=== PATIENT | male | born 1965 | race Caucasian/White ===

== ENCOUNTER 2023-11-05 21:56 | Inpatient (IN) | payer OTHER, SELFPAY ==
[2023-11-05 22:07] VITALS: BMI 21.9
[2023-11-05 22:39] VITALS: BP 160/50
--- NOTE | 2023-11-05 23:09 | HPS.HSE ---
Family Physician
-
Family Physician: * NONE
Chief Complaint
-
HEDRICK, orthopnea, PND
History of Present Illness
58 year old male with h/o rheumatism as a child, and left sided rib fractures who recently arrived to the from [facility] where he found out he needed a heart valve surgery. Per his son, he has noticed increasing HEDRICK over the past year or so with
orthopnea (he is laying flat in bed upon exam without SOB0, PND, and occassional b/l LE edema. Does admit to chest pain with exertion.
Medical History
Past Medical History
Past Medical History: Reports Hypercholesterolemia and Valvular Disease
Past Surgical History: Reports None
Social History
Tobacco: Smoker (1ppd x 20 years)
Alcohol: Occasional
Drug: None
Living: With Family
Family History
Family History: Not pertinent
Allergies / Home Medications
Allergies reflects when Allergies were last updated in [facility].
Home Medications with original date entered in [facility]
Allergy/Medication List:
NKDA, no home medications.
Review of Systems
-
History Source: Family (Son)
Constitutional: Reports Fatigue; Denies Fever, Weight Gain or Weight Loss
EENT: Reports No Symptoms
Respiratory: Reports See HPI and Trouble Breathing (with exertion)
Cardiac: Reports See HPI; Denies Palpitations or Syncope
Abdomen/GI: Reports No Symptoms
: Reports No Symptoms
Musculoskeletal: Reports No Symptoms
Skin: Reports Other (well healed burn on left elbow)
Neurological: Reports Headache; Denies Dizzy or Weakness
Endocrine: Reports No Symptoms
Hematologic/Lymphatic: Reports Bruising; Denies Bleeding
Psych: Reports No Symptoms
Physical Exam
Vital Signs
Vital Signs
Temp Resp BP Pulse Ox
96.7 F L 16 160/50 96
11/05/23 22:39 11/05/23 22:39 11/05/23 22:39 11/05/23 22:39
Physical Exam
General: Well Developed, Well Nourished and No Apparent Distress; No Pain or Fever
HEENT: NormoCephalic, Atraumatic, PERRLA, No Ptosis, Nose Appears Normal and Ears Appear Normal
Respiratory: Clear and Non Labored Respirations; No Rales, Rhonchi or Crackles
Cardiac: Regular Rhythm and Murmur (4/6 systolic murmur)
Breast: Deferred by me
GI: Non Tender, Non Distended and Normal Bowel Sounds
Rectal: Deferred by Provider
Genito-urinary: Deferred by me
Musculoskeletal: No Clubbing; No Edema, Left Lower Extremity or Edema, Right Lower Extremity
Skin: Warm, Dry and Lesions (burn scar on left elbow)
Neuro: Awake, AO x 3 and Nonfocal/grossly intact
Psych: Calm
Data Reviewed
-
Medical Tests (Nuc Med, Echo, EKG etc): Report Reviewed by me (TTE, RHC, and LHC) and Discussed with Family
Lab Data: Labs Reviewed by me (hypercholesterolemia and mild thrombocytopenia on outside labs)
Old Records: Reviewed
Impression/Plan
-
IMPRESSION:Severe (mean gradient of 65, PHILIPPE 0.7 square cm), Hyperlipidemia, Tobacco abuse. He does not appear to be in heart failure. LHC revealed no occlusive coronary disease.
PLAN: Will require workup in anticipation of AVR (date TBD). Will need carotid US, PFT's, dental evaluation. Will discuss patient with Dr. Herzog in AM. STS risk score to be done once workup is complete (suspect he will be a low risk SAVR candidate)
[2023-11-05] MEDS: TYLENOL 500 MG PO (23:15)
[2023-11-05 23:17] VITALS: BP 124/57
[2023-11-05 23:18] VITALS: BP 119/41
--- NOTE | 2023-11-05 23:34 | PTCARENOTE ---
Pt arrived via ambulance from [facility]. Pt able to ambulate from stretcher to bed w/ steady gait. Guamanian speaking. Language line in room. Son at bedside to assist w/ admission questions. Oriented pt to unit. Jason HEALY at bedside. Tele- SR.
Assessment noted as documented. VSS. C/o headache 11/05. Tylenol administered. B/l BPs documented. Currently in bed; call corbin w/in reach.
[2023-11-06] VITALS (8 sets, daily range): BP systolic 92–109; BP diastolic 40–56; BMI 21.9
[2023-11-06 04:49] LABS: O2 Saturation % 98.6 % (94-98); PCO2 42 mmHg (35-48); PO2 89 mmHg (83-108)
[2023-11-06] MEDS: BACTROBAN 2% OINTMENT 1 APPLIC NASAL (04:57)
[2023-11-06 05:03] LABS: O2 Therapy ROOM AIR
[2023-11-06 05:26] LABS: Hematocrit 39.6 % (39.0-52.0); Hemoglobin 13.2 g/dL (13.0-18.0); Mean Corp Hgb Conc. 33.3 g/dL (33.0-37.0); Mean Corpuscular Hgb 27.4 pg (27.0-31.0); Mean Corpuscular Volume 82.2 fL (80.0-94.0); Mean Platelet Volume 10.8 fL (7.4-10.4); Platelet Count 142 10^3/uL (130-400); Red Blood Cell Count 4.82 10^6/uL (4.70-6.10); White Blood Cell Count 6.1 10^3/uL (4.8-10.8)
[2023-11-06 05:38] LABS: INR 0.98
[2023-11-06 05:39] LABS: APTT 34.6 Sec (23.4-35.0)
[2023-11-06 05:50] LABS: ALT (SGPT) 22 U/L (0-50); AST (SGOT) 23 U/L (17-59); Alkaline Phosphatase 57 U/L (38-126); Blood Urea Nitrogen 15 mg/dl (9-20); Calcium 9.3 mg/dl (8.4-10.2); Carbon Dioxide 24 mmol/L (22-30); Chloride 104 mmol/L (98-107); Direct Bilirubin 0.3 mg/dl (0.0-0.4); Estimated Creatinine Clearance 79 ml/min; Glucose 95 mg/dl (70-99); Potassium 3.8 mmol/L (3.5-5.1); Sodium 136 mmol/L (135-145); Total Bilirubin 0.6 mg/dl (0.2-1.3); Total Protein 6.7 g/dl (6.3-8.2); eGFR > 60.00
--- NOTE | 2023-11-06 09:31 | W.PN.UPDATE ---
Update Note
Progress Note Update
echo and cath films from [facility] loaded into CV synapse. preop workup underway.
[2023-11-06 09:40] LABS: Glycohemoglobin (HgbA1c) 5.5 % (4.0-5.6)
[2023-11-06 11:12] LABS: Total Cholesterol 189 mg/dl (50-199); Triglyceride 196 mg/dl (10-149); Very Low Density Lipoprotein 39 mg/dl (0-30)
--- NOTE | 2023-11-06 11:21 | CON.CAR ---
Addendum entered and electronically signed by Nain Albarado MD 11/06/23 12:46:
I saw and examined the patient.
The MECHANICAL EQUIPMENT SALES ENGINEER's note was reviewed and I agree with the note.
Comment: 58M with severe symptomatic transferred for surgical AVR
- SAVR planning
- treating LDL 170
- He should stop smoking
Original Note:
Consultation
Consultation Request
Date/Time Consultation Requested: 11/06/23 0910
Date/Time Consultation Performed: 11/06/23 1100
Requesting Provider: Dennise Portillo
Performing Provider: Susanne MERCHANT for Dr. Albarado
Reason for Consultation: Aortic stenosis, severe
Medical History
-
Chief Complaint: HEDRICK, chest discomfort
History of Present Illness:
58 y/o male with dyslipidemia, smoking, and aortic stenosis who has been having HEDRICK and chest discomfort with exertion (2 years, but recently worsened). He went to [facility] and severe was noted by cath and echo (as below). No CAD.
Denies any SOB or chest pain at rest, but is reporting cough and PATIÑO for which he is ordered Tylenol and Mucinex. He is transferred for surgical management of his aortic valve stenosis. His son assists in translation.
Past Medical History
Past Medical History: Hypercholesterolemia and Valvular Disease
Social History
Tobacco: Smoker
Alcohol: Former (does not drink ETOH anymore per son)
Family History
Family History: Reviewed & Not Pertinent
Allergies / Home Medications
Allergy/AdvReac Type Severity Reaction Status Date / Time
No Known Allergies Allergy Verified 11/05/23 22:57
�Medication �Instructions �Recorded �Confirmed �Type
No Meds [No Current Medications] 11/05/23 11/05/23 History
Review of Systems
-
History Source: Patient
All other systems: Negative unless noted
Respiratory: Cough and Trouble Breathing
Cardiac: Chest Pain
Neurological: Headache
Physical Exam
Vital Signs
Temp Pulse Resp BP Pulse Ox
98.1 F 69 18 103/40 95
11/06/23 07:00 11/06/23 05:00 11/06/23 07:00 11/06/23 04:47 11/06/23 07:00
Lab Results
11/06/23 04:55
11/06/23 04:55
Physical Exam
General: Well Developed, Well Nourished and No Apparent Distress
HEENT: Normocephalic and Anicteric
Respiratory: Clear and Non Labored Respirations
Cardiac: Regular Rhythm and Murmur (IV/ systolic murmur)
Musculoskeletal: No Edema
Skin: Warm and Dry
Neuro: AO x 3
Psych: Calm
Impression / Plan
-
Aortic stenosis: Severe
-severe by cath and echo (see details below)
-surgical management per CT surgery. Pre-procedure testing is pending.
HLD:
-LDL 170 at [facility]
-now on statin
Smoking:
-recommended total cessation
Data Reviewed
-
EKG: Tracing Personally Visualized and interpreted (EKG 10/31/23: SR with LVH, non-specific ST/T abnormality 90 BPM)
Medical Tests (Nuc Med, Echo etc): Report Reviewed by me (echo 10/31/24: Severely calcified aortic valve leaflets, MG 65 mmHG, PHILIPPE 0.7 cm2 (severe ), mild to moderate AR, mild MR, mild LVH, EF 55-60%, global long strain mildly abnormal -15%, grade 1
DD) and Other (cardiac cath 11/04/23: very severe with mean gradient 65 mmHG PHILIPPE 0.52 cm2, no evidence for CAD, normal L and R cath pressures)
Labs: Labs Reviewed by me and Other (LDL 11/01/23: 170)
[2023-11-06 11:26] LABS: HDL Cholesterol 36 mg/dl; LDL Cholesterol, Calculated 114 mg/dl
--- NOTE | 2023-11-06 12:00 | CM ---
CM following for DC planning needs.
Met w/ patient and son at bedside. Son provided translation.
Pt. recently moved [place]2 [place] ago to be w/ son. He resides w/ son, dtr. in law and his grandchildren (all under age 6).
Functionally, patient is indep. w/ ADLs, mobility without the use of any assisted device.
Pt. has RX plan and uses [facility] on [address] in [place].
Awaiting CT Surg plan. Will meet with patient, son once plan is in place for pre-op teaching.
CM to follow.
[2023-11-06] MEDS: MUCINEX 600 MG PO (13:04)
[2023-11-06] MEDS: TYLENOL 500 MG PO (13:04)
--- NOTE | 2023-11-06 13:12 | PTCARENOTE ---
Pt was off the floor having U/S and CT scan at the time of 1200 vital signs. Vital signs obtained upon return to unit.
[2023-11-06] MEDS: LIPITOR 40 MG PO (17:53)
--- NOTE | 2023-11-06 21:44 | PTCARENOTE ---
AOX3. Assessment noted as documented. VSS. tele- SR. Offers no c/o at this time. Currently in bed; call corbin w/in reach.
[2023-11-07 03:43] VITALS: BP 90/52
--- NOTE | 2023-11-07 07:18 | W.PN.CT ---
Today's Communication / Plan
-
-c/o cough x3 days with scant sputum - unable to produce specimen yet, will start Mucinex. Remains afebrile, nl wbc. CXR without acute dz. ? swab for covid/influenza
-Chest/abd/pelvis CTA 11/06/23:
Mild cardiomegaly with aortic valvular calcification
Dependent atelectasis and minimal interstitial scarring at the lung bases
-quit smoking 2-3 wks ago
-no significant carotid dz b/l
-panelipse ok
-OR date for AVR is pending
Assessment / Plan
-
-Severe (mean gradient of 65, PHILIPPE 0.7 square cm)
-Cough x3 days with scant mucus
-Tobacco abuse, quit 2 wks ago
-HLD
-LHC revealed no occlusive coronary disease.
Discussed patient care with: Nursing and Care Team
Subjective
-
Date of Service: November 07, 2023
Objective Data
-
Lab Results
11/06/23 04:55
11/06/23 04:55
PT 13.0 Sec (11.4-14.6) 11/06/23 04:55
INR 0.98 11/06/23 04:55
APTT 34.6 Sec (23.4-35.0) 11/06/23 04:55
Vital Signs
Vital Signs
Temp Pulse Resp BP Pulse Ox
98.2 F 83 16 90/52 96
11/07/23 03:43 11/07/23 03:43 11/07/23 03:43 11/07/23 03:43 11/07/23 03:43
CT Intake/Output/Weight
11/06/23 11/07/23 11/07/23
18:59 06:59 18:59
Intake Total 240 / 240
Balance 240 / 240
SaO2: 96
Physical Exam
-
General: Awake and AOx3
Cardiovascular: Regular rate & rhythm and Murmur (3/6 systolic murmur @ rsb radiating to carotids)
Respiratory: Clear and Decreased Breath Sounds
Extremities: No Edema
Data Reviewed
-
Lab Results: Results Reviewed
Medications: Active Meds Reviewed
Chest X-Ray: Report Reviewed and Image Reviewed
CT Scan: Report Reviewed
ECG: Report Reviewed and Image Reviewed
[2023-11-07 08:08] VITALS: BP 96/57
[2023-11-07] MEDS: MUCINEX 600 MG PO ×2 (08:55→19:35)
--- NOTE | 2023-11-07 09:20 | W.PN.CD ---
Today's Communication / Plan
-
SAVR timing TBD
Impression / Plan
-
Impression: 58M with severe symptomatic transferred for inpatient SAVR
Plan:
Aortic stenosis: Severe
-severe by cath and echo
-surgical management per CT surgery. Pre-procedure testing is ongoing
HLD:
-LDL 170 at [facility]
-now on statin
Smoking: recommended continuing cessation
Subjective:Cough
Data
TTE Oct 5: EF 55-60%, Severely calcified aortic valve leaflets, MG 65 mmHG, PHILIPPE 0.7 cm2 (severe ), mild to moderate AR, mild MR, mild LVH,,
cardiac cath Oct 8: Severe with mean gradient 65 mmHG PHILIPPE 0.52 cm2, no evidence for CAD, normal L and R cath pressures
Physical Exam
Vital Signs/Labs
Vital Signs
Temp Pulse Resp BP Pulse Ox
36.9 C 99 20 96/57 95
11/07/23 08:06 11/07/23 09:00 11/07/23 08:06 11/07/23 08:08 11/07/23 08:08
11/06/23 11/07/23 11/08/23
06:59 06:59 06:59
Actual Weight 139 lb 12.369 oz
11/06/23 04:55
11/06/23 04:55
PT 13.0 Sec (11.4-14.6) 11/06/23 04:55
INR 0.98 11/06/23 04:55
APTT 34.6 Sec (23.4-35.0) 11/06/23 04:55
Triglycerides 196 mg/dl (10-149) H 11/06/23 10:23
LDL Cholesterol, Calc 114 mg/dl 11/06/23 10:23
VLDL Cholesterol, Calc 39 mg/dl (0-30) H 11/06/23 10:23
HDL Cholesterol 36 mg/dl 11/06/23 10:23
Data Reviewed
-
Date of Service: November 07, 2023
[2023-11-07] MEDS: TYLENOL 500 MG PO (09:29)
[2023-11-07 09:54] LABS: COVID-19 Antigen Negative (Negative)
[2023-11-07] MEDS: DUONEB 3 ML INH (10:47)
--- NOTE | 2023-11-07 10:51 | W.PN.UPDATE ---
Update Note
Progress Note Update
Procedure Type:�Isolated AVR
PERIOPERATIVE OUTCOME ESTIMATE %
Operative Mortality 0.692%
Morbidity & Mortality 5.04%
Stroke 0.59%
Renal Failure 0.376%
Reoperation 3.83%
Prolonged Ventilation 1.59%
Deep Sternal Wound Infection 0.037%
Long Hospital Stay (>14 days) 1.89%
Short Hospital Stay (<6 days)* 67.9%
Clinical Summary
Planned Surgery: Isolated AVR, Urgent, First cardiovascular surgery
Demographics: 58 year old, male, 63.4kg, 170cm, BMI: 21.9 kg/m�
Lab Values: Creatinine: 0.6 mg/dL, Hematocrit: 39.6%, WBC Count: 6.1 10�/�L, Platelet Count: 060787 cells/�L
Substance Abuse: Current smoker, Alcohol use: 2-7 drinks/week
Cardiac Status: Ejection Fraction = 55%
Coronary Artery Disease: No coronary symptoms
Valve Disease: Aortic Stenosis, Mild MR
Assuming no significant pulm disease on PFT (still pending).
[2023-11-07 11:18] VITALS: BP 122/81
--- NOTE | 2023-11-07 12:07 | PTCARENOTE ---
Pt c/o cough and sore throat, med with Mucinex as ordered and Tylenol. He has a productive cough for thin whitish-clear sputum. Sputum specimen sent for culture as ordered. Pt does have some SOB, neb treatment given by RT, Pt reports feeling better
after neb treatment. Covid test ordered and sent, result was negative.
[2023-11-07 15:03] VITALS: BP 102/54
--- NOTE | 2023-11-07 18:17 | W.PN.OMFS ---
Today's Communication
-
NKDA
Assessment / Plan
-
DENTAL CLEARED FOR AORTIC VALVULAR SURGERY
RAQUEL NUNES, YESENIA
Subjective Data
-
OMFS DENTAL CLEARANCE
Objective Data
-
Vitals, I&O and Lab Results:
Vital Signs
Temp Pulse Resp BP Pulse Ox
98.6 F 81 20 122/81 96
11/07/23 15:01 11/07/23 14:15 11/07/23 15:01 11/07/23 11:18 11/07/23 15:01
Intake and Output
11/06/23 11/07/23 11/08/23
06:59 06:59 06:59
Intake Total 480 / 480 240 / 240
Balance 480 / 480 240 / 240
Intake:
Oral fluids 480 / 480 240 / 240
Other:
Number of approximated MODERATE 2 2
amounts of urine
Lab Data
11/06/23 04:55
11/06/23 04:55
Plt Count 142 10^3/uL (130-400) 11/06/23 04:55
Microbiology
11/07/23 09:19 Respiratory Culture - Pending
Sputum Gram Stain - Preliminary
Physical Exam
-
DENTALLY INTACT AND RESTORED
NO ACUTE DISEASE
[2023-11-07] MEDS: LIPITOR 40 MG PO (18:19)
[2023-11-07 19:05] VITALS: BP 109/65
--- NOTE | 2023-11-07 19:49 | PTCARENOTE ---
AOx3. Assessment completed as documented. VSS. Pt c/o occ. cough. Mucinex administered as ordered. Tele- Sr. Ambulating around room w/ steady gait. Currently OOB in chair; call alaniz w/in reach.
[2023-11-07 22:14] VITALS: BP 144/60
--- NOTE | 2023-11-08 04:11 | W.PN.CT ---
Today's Communication / Plan
-
-no significant issues overnight
-s/p PFT 11/06
-appreciate everyone's input
-tentative plan for AVR next week on Sat or Sat
Assessment / Plan
-
-Severe (mean gradient of 65, PHILIPPE 0.7 square cm)
-Cough x3 days with scant mucus, Covid negative
-Tobacco abuse, quit 2 wks ago
-HLD
-TTE Oct 5: EF 55-60%, Severely calcified aortic valve leaflets, MG 65 mmHG, PHILIPPE 0.7 cm2 (severe ), mild to moderate AR, mild MR, mild LVH,,
-Cardiac cath Oct 8: Severe with mean gradient 65 mmHG PHILIPPE 0.52 cm2, no evidence for CAD, normal L and R cath pressures
Discussed patient care with: Nursing and Care Team
Subjective
-
Date of Service: November 08, 2023
Objective Data
-
Lab Results
11/06/23 04:55
11/06/23 04:55
PT 13.0 Sec (11.4-14.6) 11/06/23 04:55
INR 0.98 11/06/23 04:55
APTT 34.6 Sec (23.4-35.0) 11/06/23 04:55
Vital Signs
Vital Signs
Temp Pulse Resp BP Pulse Ox
98.2 F 100 16 109/65 96
11/07/23 22:21 11/07/23 19:15 11/07/23 22:21 11/07/23 19:05 11/07/23 22:21
CT Intake/Output/Weight
11/07/23 11/07/23 11/08/23
06:59 18:59 06:59
Intake Total 240 / 240
Balance 240 / 240
SaO2: 96
[2023-11-08 05:23] VITALS: BP 101/51
[2023-11-08 05:25] VITALS: BMI 21.8
--- NOTE | 2023-11-08 08:18 | W.PN.CD ---
Today's Communication / Plan
-
Continue surgical planning.
Impression / Plan
-
Impression/Plan: 58M with severe symptomatic transferred for inpatient SAVR.
#Severe Aortic stenosis
-Severe by cath and echo
-Surgical management per CT surgery.
-Tentative plan for OR on 11/10 vs. 11/11.
#HLD
-Chronic, stable.
-LDL 170 at [facility]
-Now on atorvastatin 40 mg daily.
-Goal LDL < 55.
#Cough
-New.
-Management per primary service.
-Agree with current management.
#Smoking
-Recommended continuing cessation.
Subjective/Interval History:
Stable overnight.
Dentistry/OMFS has evaluated - no contraindication to surgery.
He is complaining of a cough. Primary service has discontinued guiafenissen in favor of robitussin and tessalon pearls.
Data:
Carotid Artery US, 11/06/2023:
IMPRESSION:
Minimal noncalcified plaque within BOTH carotid bulbs causing less than 50% luminal narrowing bilaterally.
Antegrade flow within both vertebral arteries.
Orthopantogram, 11/06/2023:
FINDINGS/IMPRESSION:
Limited exam due to the technical motion.
No definite lucency around the roots of the teeth to suggest an abscess. No fracture.
CTA C/A/P, 11/06/2023:
IMPRESSION:
Mild cardiomegaly with aortic valvular calcification.
Dependent atelectasis and minimal interstitial scarring at the lung bases.
TTE Apr 5: EF 55-60%, Severely calcified aortic valve leaflets, MG 65 mmHG, PHILIPPE 0.7 cm2 (severe ), mild to moderate AR, mild MR, mild LVH,,
cardiac cath Apr 8: Severe with mean gradient 65 mmHG PHILIPPE 0.52 cm2, no evidence for CAD, normal L and R cath pressures
Physical Exam
Vital Signs/Labs
Vital Signs
Temp Pulse Resp BP Pulse Ox
36.7 C 72 16 101/51 96
11/08/23 05:23 11/08/23 05:23 11/08/23 05:23 11/08/23 05:23 11/08/23 05:23
11/06/23 11/07/23 11/08/23
11:59 11:59 11:59
Actual Weight 63.4 kg 63.2 kg
11/06/23 04:55
11/06/23 04:55
PT 13.0 Sec (11.4-14.6) 11/06/23 04:55
INR 0.98 11/06/23 04:55
APTT 34.6 Sec (23.4-35.0) 11/06/23 04:55
Triglycerides 196 mg/dl (10-149) H 11/06/23 10:23
LDL Cholesterol, Calc 114 mg/dl 11/06/23 10:23
VLDL Cholesterol, Calc 39 mg/dl (0-30) H 11/06/23 10:23
HDL Cholesterol 36 mg/dl 11/06/23 10:23
Physical Exam
Constitutional: No acute distress and Comfortable
EENT: Anicteric and Moist mucous membranes
Cardiovascular: Rhythm & rate is regular, Pedal edema is absent, JVD pressure is normal, Systolic murmur present and S1S2 is normal
Respiratory: Respiratory effort normal, Lungs clear to auscul., Wheeze Absent, Crackles Absent and Rhonchi Absent
GI: Soft, Distention absent, Flat, Non tender and Normal bowel sounds
Neuro/Psych: AO x 3
Data Reviewed
-
Date of Service: November 08, 2023
Medical Decision Making: Reviewed Test Results and Independent Historian Assessment
EKG: Tracing Personally Visualized and interpreted and Report Reviewed by me
Echo: Report Reviewed by me
X-Ray/CT/US/MRI/NUC/PET: Report Reviewed by me
Medical Tests (PFT, Pathology etc): Report Reviewed by me
Labs: Labs Reviewed by me
[2023-11-08 08:23] VITALS: BP 111/53
[2023-11-08] MEDS: PROTONIX 40 MG PO (08:46)
[2023-11-08] MEDS: ROBITUSSIN 200 MG PO ×4 (08:46→22:26)
[2023-11-08] MEDS: TESSALON PERLES 100 MG PO ×2 (08:47→22:26)
[2023-11-08 11:25] VITALS: BP 104/57
--- NOTE | 2023-11-08 12:01 | CM ---
Addendum entered by BRITTANY Hector 11/08/23 15:04:
With assistance of Search And Rescue Officer, Fei, completed pre-op teaching with patient and son.
Reviewed pre and post op routines.
Discussed post op restrictions to include flying, lifting, driving and sternal precautions.
Reviewed MD appointments, Cardiac Rehab and visit from CT Transitional Care RN v. VN (will depend based on geographical area).
Answered all questions.
Plan is for CT Surgery next week.
Will follow.
Original Note:
CM following for DC planning needs.
Met w/ patient this AM. Plan for CT Surgery next wk.
Pt. states that his son will arrive this PM. Will return to complete pre-operative teaching.
[2023-11-08] MEDS: TYLENOL 500 MG PO (14:44)
[2023-11-08 15:50] VITALS: BP 106/52
[2023-11-08] MEDS: LIPITOR 40 MG PO (18:40)
[2023-11-08 18:50] VITALS: BP 103/53
--- NOTE | 2023-11-08 21:41 | PTCARENOTE ---
AOx3. Assessment noted as documented. VSS. Tele- SR. Pt ambulating around room w/ steady gait. Offers no c/o at this time.
[2023-11-08 22:25] VITALS: BP 113/58
[2023-11-08] MEDS: MELATONIN 5 MG PO (22:26)
[2023-11-09 04:05] VITALS: BP 102/56
--- NOTE | 2023-11-09 06:59 | W.PN.CT ---
Today's Communication / Plan
-
-No major issues overnight. Denies SOB/CP
-Cont. current medical management
-Cont. current meds (avoid JU-I/ARBs in preparation for OR)
-Ongoing preop workup
-For mini AVR (bio vs mechanical) by Dr. Herzog on Friday 11/10
-Will cont. to closely monitor
Assessment / Plan
-
Assessment:
-Severe (mean gradient of 65, PHILIPPE 0.7 square cm)
-Cough x3 days with scant mucus, Covid negative
-Tobacco abuse, quit 2 wks ago
-HLD
-TTE Oct 5: EF 55-60%, Severely calcified aortic valve leaflets, MG 65 mmHG, PHILIPPE 0.7 cm2 (severe ), mild to moderate AR, mild MR, mild LVH,,
-Cardiac cath Oct 8: Severe with mean gradient 65 mmHG PHILIPPE 0.52 cm2, no evidence for CAD, normal L and R cath pressures
Discussed patient care with: Cardiology, Nursing and Care Team
Subjective
-
Date of Service: November 09, 2023
No issues overnight. Denies CP/SOB
Objective Data
-
Lab Results
11/06/23 04:55
11/06/23 04:55
PT 13.0 Sec (11.4-14.6) 11/06/23 04:55
INR 0.98 11/06/23 04:55
APTT 34.6 Sec (23.4-35.0) 11/06/23 04:55
Vital Signs
Vital Signs
Temp Pulse Resp BP Pulse Ox
97.8 F 61 18 102/56 96
11/09/23 03:10 11/09/23 05:15 11/09/23 03:10 11/09/23 04:05 11/09/23 03:10
CT Intake/Output/Weight
11/08/23 11/08/23 11/09/23
06:59 18:59 06:59
Intake Total 240 / 240 480 / 480
Balance 240 / 240 480 / 480
SaO2: 96 (RA)
Physical Exam
-
General: Awake and AOx3
Cardiovascular: Regular rate & rhythm and No Murmurs
Respiratory: Clear
Extremities: No Edema
Data Reviewed
-
Lab Results: Results Reviewed
Medications: Active Meds Reviewed
Chest X-Ray: Report Reviewed and Image Reviewed
ECG: Report Reviewed and Image Reviewed
[2023-11-09 07:03] VITALS: BP 100/53
[2023-11-09] MEDS: PROTONIX 40 MG PO (08:20)
[2023-11-09] MEDS: ROBITUSSIN 200 MG PO ×4 (08:20→22:32)
[2023-11-09 11:40] VITALS: BP 100/56
[2023-11-09 16:03] VITALS: BP 93/54
[2023-11-09] MEDS: LIPITOR 40 MG PO (17:45)
[2023-11-09 20:07] VITALS: BP 96/54
[2023-11-09 22:28] VITALS: BP 104/59
[2023-11-09] MEDS: KCL 20 MEQ PO (22:32)
[2023-11-09] MEDS: MELATONIN 5 MG PO (22:32)
--- NOTE | 2023-11-09 23:17 | W.PN.CT ---
Today's Communication / Plan
-
-No major issues overnight. Denies SOB/CP
-Cont. current management
-Cont. current meds (avoid JU-I/ARBs in preparation for OR)
-Ongoing preop workup
-For mini AVR (biological valve) by Dr. Herzog tomorrow 11/10
-Will cont. to closely monitor
Assessment / Plan
-
Assessment:
-Severe
-Cough x3 days with scant mucus, COVID negative
-Tobacco abuse, quit 2 wks ago
-Hyperlipidemia
Discussed patient care with: Cardiology, Nursing, Pharmacy and Care Team
Subjective
-
Date of Service: November 09, 2023
No issues overnight. Denies CP/SOB. States cough has improved
Objective Data
-
Lab Results
11/06/23 04:55
11/06/23 04:55
PT 13.0 Sec (11.4-14.6) 11/06/23 04:55
INR 0.98 11/06/23 04:55
APTT 34.6 Sec (23.4-35.0) 11/06/23 04:55
Vital Signs
Vital Signs
Temp Pulse Resp BP Pulse Ox
98.5 F 87 20 104/59 96
11/09/23 22:28 11/09/23 22:28 11/09/23 22:28 11/09/23 22:28 11/09/23 22:28
CT Intake/Output/Weight
11/09/23 11/09/23 11/10/23
06:59 18:59 06:59
Intake Total 480 / 480
Balance 480 / 480
SaO2: 96
Physical Exam
-
General: Awake, Oriented and AOx3
Cardiovascular: Regular rate & rhythm, Murmur (3-4/6 systolic) and No Gallop
Respiratory: Decreased Breath Sounds
Incision: Clean, Dry, Intact and Dressing Intact
Extremities: No Edema
Data Reviewed
-
Lab Results: Results Reviewed
Medications: Active Meds Reviewed
Chest X-Ray: Report Reviewed and Image Reviewed
ECG: Report Reviewed and Image Reviewed
--- NOTE | 2023-11-10 01:19 | PTCARENOTE ---
No complaints CP/discomfort, VSS, NSR on the monitor. Pt. sleeping.
[2023-11-10 03:52] VITALS: BP 97/48
[2023-11-10 08:00] VITALS: BP 98/46
[2023-11-10] MEDS: ROBITUSSIN 200 MG PO ×4 (08:01→21:55)
[2023-11-10] MEDS: VITAMIN C 500 MG PO (08:01)
[2023-11-10] MEDS: PROTONIX 40 MG PO (08:01)
[2023-11-10 11:44] VITALS: BP 101/61
[2023-11-10] MEDS: FERRLECIT 110 MG IV (13:53)
--- NOTE | 2023-11-10 17:02 | PTCARENOTE ---
Pt ambulating in room, offers no complaints today, he said that he no longer has a sore throat and that his cough is lessening.
[2023-11-10] MEDS: LIPITOR 40 MG PO (18:12)
[2023-11-10 19:16] VITALS: BP 120/57
[2023-11-10 21:54] VITALS: BP 116/57
[2023-11-10] MEDS: MELATONIN 5 MG PO (21:55)
[2023-11-11] VITALS (15 sets, daily range): BP systolic 86–115; BP diastolic 44–78; BMI 21.6
[2023-11-11 05:41] LABS: Hematocrit 37.2 % (39.0-52.0); Hemoglobin 12.8 g/dL (13.0-18.0); Mean Corp Hgb Conc. 34.4 g/dL (33.0-37.0); Mean Corpuscular Hgb 27.6 pg (27.0-31.0); Mean Corpuscular Volume 80.2 fL (80.0-94.0); Mean Platelet Volume 10.4 fL (7.4-10.4); Platelet Count 162 10^3/uL (130-400); Red Blood Cell Count 4.64 10^6/uL (4.70-6.10); Red Cell Dist. Width 12.1 % (11.5-14.5); White Blood Cell Count 7.2 10^3/uL (4.8-10.8)
--- NOTE | 2023-11-11 05:50 | PTCARENOTE ---
No complaints pain/discomfort or SOB this shift, NSR on the monitor, VSS. Pt. clipped and showered x 2 with chlorhexidine soap this shift in preparation for CVOR today (beds also switched out, AM labs completed, B/L arm BP's done). Per Ed
Iris, pre-op meds to be given by dayshift RN when surgery is more imminent (later morning). Pt. verbalizes understanding of plan of care.
[2023-11-11 06:19] LABS: Blood Urea Nitrogen 17 mg/dl (9-20); Calcium 9.5 mg/dl (8.4-10.2); Carbon Dioxide 24 mmol/L (22-30); Chloride 105 mmol/L (98-107); Estimated Creatinine Clearance 70 ml/min; Glucose 99 mg/dl (70-99); Magnesium 2.2 mg/dl (1.6-2.3); Potassium 4.4 mmol/L (3.5-5.1); Sodium 138 mmol/L (135-145); eGFR > 60.00
--- NOTE | 2023-11-11 06:32 | W.CVOR.SURPR ---
CVOR Surgeon Immed Pre Op
-
I have examined this patient prior to performance of the scheduled procedure.
The patient's condition is unchanged from the time of the dictated/written History and
Physical and the patient is able to undergo the scheduled procedure.
AVR (Shared decision making with Mr. Chappell is for a Biological Valve)
[2023-11-11] MEDS: VITAMIN C PO (08:40)
[2023-11-11] MEDS: PROTONIX 40 MG PO (08:40)
[2023-11-11] MEDS: ROBITUSSIN PO ×2 (08:40→17:23)
[2023-11-11] MEDS: PROTONIX PO (08:40)
[2023-11-11] MEDS: BACTROBAN 2% OINTMENT 1 APPLIC NASAL ×2 (08:40→20:11)
[2023-11-11] MEDS: MAGNESIUM OXIDE 500 MG PO (08:40)
--- NOTE | 2023-11-11 09:00 | PTCARENOTE ---
pt received from restaurant shift leader RN. resting comfortable in bed. son at bedside. AAOX3, denies pain. per CTPA, to hold pre op metoprolol. BP 98/51, normal sinus rhythm heart rate in 70s. pulses palpable. pt on room air, sat 94%. lung sounds clear
diminished in bases. see worklist for full nursing assessment and interventions. pt awaiting CVOR.
--- NOTE | 2023-11-11 12:20 | CM ---
pt in OR today, cm to follow.
[2023-11-11 13:24] LABS: B.E. - POC -0.9 mmol/L; Glucose - POC 94 mg/dl (65-99); HCO3 - POC 24 mmol/L (21-29); Hematocrit - POC 39 % PCV (42-52); Hemodilution- POC No; Hemoglobin Calculated - POC 13.3; Ionized Calcium - POC 1.21 mmol/L (1.12-1.27); O2 Saturation %Calculated-POC 99.5 5 (92-96); PCO2 - POC 40 mmHg (35-45); PO2 - POC 174 mmHg (80-100); Potassium - POC 3.9 mmol/L (3.6-5.0); Sodium - POC 142 mmol/L (135-145); pH - POC 7.39 (7.35-7.45)
[2023-11-11 13:32] LABS: Urine Albumin Negative (Neg - Trace); Urine Bilirubin Negative (Negative); Urine Character Clear (Clear); Urine Color Yellow; Urine Glucose Negative (Negative); Urine Ketone Negative (Negative); Urine Leukocyte Negative (Negative); Urine Nitrite Negative (Negative); Urine Occult Blood 1+ (Negative); Urine Urobilinogen Negative (Neg - 1+); Urine pH 6.5 (5.0-9.0)
[2023-11-11 13:56] LABS: ACT+ - POC 490 Seconds (82-134)
[2023-11-11 14:16] LABS: Urine Mucus Few
[2023-11-11 14:18] LABS: Urine Bacteria Few (Negative); Urine White Cell 0-2 /HPF (0-5)
[2023-11-11 14:38] LABS: B.E. - POC 0.7 mmol/L; Glucose - POC 119 mg/dl (65-99); HCO3 - POC 24 mmol/L (21-29); Hematocrit - POC 33 % PCV (42-52); Hemodilution- POC Yes; Hemoglobin Calculated - POC 11.1; Ionized Calcium - POC 0.93 mmol/L (1.12-1.27); O2 Saturation %Calculated-POC 99.9 5 (92-96); PCO2 - POC 34 mmHg (35-45); PO2 - POC 323 mmHg (80-100); Potassium - POC 5.8 mmol/L (3.6-5.0); Sodium - POC 137 mmol/L (135-145); pH - POC 7.46 (7.35-7.45)
[2023-11-11 14:40] LABS: ACT+ - POC 592 Seconds (82-134)
[2023-11-11 15:16] LABS: ACT+ - POC 618 Seconds (82-134)
[2023-11-11 15:17] LABS: B.E. - POC -0.9 mmol/L; Glucose - POC 176 mg/dl (65-99); HCO3 - POC 25 mmol/L (21-29); Hematocrit - POC 33 % PCV (42-52); Hemodilution- POC Yes; Hemoglobin Calculated - POC 11.3; Ionized Calcium - POC 1.03 mmol/L (1.12-1.27); O2 Saturation %Calculated-POC 99.7 5 (92-96); PCO2 - POC 43 mmHg (35-45); PO2 - POC 217 mmHg (80-100); Sodium - POC 137 mmol/L (135-145); pH - POC 7.36 (7.35-7.45)
[2023-11-11] MEDS: ANCEF 10 IV ×2 (15:25)
[2023-11-11 15:35] LABS: ACT+ - POC 87 Seconds (82-134)
[2023-11-11 15:54] LABS: B.E. - POC -1.1 mmol/L; Glucose - POC 173 mg/dl (65-99); HCO3 - POC 24 mmol/L (21-29); Hematocrit - POC 35 % PCV (42-52); Hemodilution- POC Yes; Hemoglobin Calculated - POC 11.8; Ionized Calcium - POC 1.29 mmol/L (1.12-1.27); O2 Saturation %Calculated-POC 99.8 5 (92-96); PCO2 - POC 42 mmHg (35-45); PO2 - POC 238 mmHg (80-100); Potassium - POC 5.3 mmol/L (3.6-5.0); Sodium - POC 138 mmol/L (135-145); pH - POC 7.37 (7.35-7.45)
--- NOTE | 2023-11-11 16:06 | CON.INTV ---
Consultation
Consultation Request
Date/Time Consultation Requested: 11-11-23
Date/Time Consultation Performed: 11-11-23
Requesting Provider: Dr Herzog
Performing Provider: Dr Riley
Reason for Consultation: AVR
Medical History
-
Chief Complaint: s/p AVR MV
History of Present Illness:
Mr Javier Chappell is a 58/M transferred from [facility] on 11-04 for evaluation of severe .
He presented to [facility] with acute on chronic HEDRICK and chest discomfort, LHC and TTE showed severe . Seen by Dr Herzog, prepared for AVR
Seen at [facility], received bioprosthetic AV with no issue. Weaning from MV on CPAP at time of visit
Past Medical History
Past Medical History: Hypercholesterolemia
Social History
Tobacco: Smoker
Alcohol: None
Drug: None
Living: With Family
Family History
Family History: Reviewed & Not Pertinent
Allergies / Home Medications
Allergies
Allergy/AdvReac Type Severity Reaction Status Date / Time
No Known Allergies Allergy Verified 11/05/23 22:57
Home Medications
�Medication �Instructions �Recorded �Confirmed �Last Taken �Type
No Meds [No Current Medications] 11/05/23 11/05/23 Unknown History
Review of Systems
-
Unable to Obtain full review of systems at this time due to: Patient Intubation
Vitals / Labs / Diagnostic Testing
Vital Signs
Temp Pulse Resp BP Pulse Ox
98.1 F 80 16 101/60 97
11/11/23 12:00 11/11/23 12:00 11/11/23 12:00 11/11/23 11:59 11/11/23 12:00
Microbiology
11/08/23 17:50 Nose MRSA Screen - Final
No Methicillin Resistant Staphylococcus aureus isolated.
11/07/23 09:19 Sputum Respiratory Culture - Final
Usual Respiratory Ashley
11/07/23 09:19 Sputum Gram Stain - Final
Diagnostic Testing:
Physical Exam
-
HEENT: Normocephalic and Moist Mucous Membranes
Cardiovascular: Peripheral Edema (n)
Respiratory: Clear and Non-Labored Respirations
GI: Soft and Non Distended
Neurology: Other (sedated)
Skin: Warm
General: Respiratory Distress (n)
Assessment
-
Assessment:
Mr Javier Chappell is a 58/M transferred from [facility] for evaluation of severe . He presented to [facility] with acute on chronic HEDRICK and chest discomfort, LHC and TTE showed severe . Seen by Dr Herzog, prepared for AVR
Impression:
S/p bioprosthetic AVR 11-10
Conditions KENNEL STAFF MEMBER:
HLD
Smoker
Plan:
Ventilator settings reviewed: on CPAP weaning trial
Arterial blood gases will be monitored
Extubate per protocol
Pulmonary artery catheter parameters will be followed
Pressors/antihypertensive/inotropes/diuretics will be provided as needed
Monitor chest tube output
Monitor hemoglobin
Monitor platelet count and coags
Transfuse blood product if needed
CT surgery following chest tubes
Monitor blood sugar
Insulin drip per protocol
Aspiration precautions
VAP prevention protocol
DVT prophylaxis
Early nutrition
Early mobilization
Critical care time: 35 min
D/w FINANCIAL BUSINESS ANALYST and patient's son at bedside
--- NOTE | 2023-11-11 16:08 | W.PN.CD ---
Addendum entered and electronically signed by Hipolito Damian MD 11/11/23 18:16:
I saw and examined the patient.
The EPIC MANAGER's note was reviewed and I agree with the note.
s/p hemisternotomy with aortic valve replacement (25 mm bioprosthesis), Dr. Herzog 11/11/23
in sinus
stable post op
-wean pressor as tolerated
Original Note:
Today's Communication / Plan
-
Close post-op monitoring and care with weaning of vent/drips per CT surgery/CVICU protocol
Impression / Plan
-
Impression/Plan: 58M with severe symptomatic transferred for inpatient SAVR.
#Severe Aortic stenosis, moderate aortic insufficiency:
-now s/p hemisternotomy with aortic valve replacement (25 mm bioprosthesis), Dr. Herzog 11/11/23
-intubated/sedated [id number] on Precedex
-Chen, CT, pacer wire in place
-not requiring pressors post-op
-tele and EKG stable in SR
#HLD:
-LDL 170 at [facility]
-Now on atorvastatin 40 mg daily.
-Goal LDL < 55.
#Cough:
-noted pre-op
-currently intubated/ventilated- monitor post-op
#Smoking
-Recommended continuing cessation.
Subjective/Interval History:
Intubated/sedated, but appears comfortable and in no distress
Data:
Carotid Artery US, 11/06/2023:
IMPRESSION:
Minimal noncalcified plaque within BOTH carotid bulbs causing less than 50% luminal narrowing bilaterally.
Antegrade flow within both vertebral arteries.
Orthopantogram, 11/06/2023:
FINDINGS/IMPRESSION:
Limited exam due to the technical motion.
No definite lucency around the roots of the teeth to suggest an abscess. No fracture.
CTA C/A/P, 11/06/2023:
IMPRESSION:
Mild cardiomegaly with aortic valvular calcification.
Dependent atelectasis and minimal interstitial scarring at the lung bases.
TTE Apr 5: EF 55-60%, Severely calcified aortic valve leaflets, MG 65 mmHG, PHILIPPE 0.7 cm2 (severe ), mild to moderate AR, mild MR, mild LVH,,
cardiac cath Apr 8: Severe with mean gradient 65 mmHG PHILIPPE 0.52 cm2, no evidence for CAD, normal L and R cath pressures
Physical Exam
Vital Signs/Labs
Vital Signs
Temp Pulse Resp BP Pulse Ox
98.1 F 80 16 101/60 97
11/11/23 12:00 11/11/23 12:00 11/11/23 12:00 11/11/23 11:59 11/11/23 12:00
11/10/23 11/11/23 11/12/23
06:59 06:59 06:59
Actual Weight 62.6 kg
PT 13.0 Sec (11.4-14.6) 11/06/23 04:55
INR 0.98 11/06/23 04:55
APTT 34.6 Sec (23.4-35.0) 11/06/23 04:55
Magnesium 2.2 mg/dl (1.6-2.3) 11/11/23 05:17
Triglycerides 196 mg/dl (10-149) H 11/06/23 10:23
LDL Cholesterol, Calc 114 mg/dl 11/06/23 10:23
VLDL Cholesterol, Calc 39 mg/dl (0-30) H 11/06/23 10:23
HDL Cholesterol 36 mg/dl 11/06/23 10:23
Physical Exam
Constitutional: No acute distress
Cardiovascular: Rhythm & rate is regular
Respiratory: Other (intubated/sedated, clear lungs to auscultation)
Neuro/Psych: Other (sedated)
Other: Skin (midsternal incision no redness, drainage, or swelling)
Data Reviewed
-
Date of Service: November 11, 2023
EKG: Tracing Personally Visualized and interpreted (ST, non specific ST/T abnormalities- no acute change to my review)
Labs: Labs Reviewed by me
--- NOTE | 2023-11-11 16:09 | W.PN.CT.SURG ---
CT Surgery Operative Note
-
CARDIAC SURGERY OPERATIVE REPORT
Preoperative Diagnosis: Aortic valve severe aortic stenosis and moderately severe aortic insufficiency, symptomatic
Postoperative Diagnosis: Same
Procedure(s) Performed:
1. Right common femoral vein percutaneous cannulation under RICKEY guidance and Seldinger technique with ultrasound
2. Hemisternotomy [third and costal space] aortic valve replacement [25 mm bioprosthesis]
3. Placement of temporary ventricular pacing wires
4. Transesophageal echocardiography
5. Extensive debridement down to the aorta mitral curtain the ventricular aspect of the anterior leaflet of mitral valve
Date of Surgery: 11/11/2023
Comorbidities:
1. Bicuspid aortic valve, type I with left right fusion and severe stenosis and moderate insufficiency
2. Hyperlipidemia
3. Former tobacco abuse
Attending Surgeon: West Herzog MD, MS
Scrub and Circulating RNs: Lawrence Gomez RN, Brigette Rueals RN
Assistants: Dennise Portillo PA-C, (necessary for first asistance, retraction, exposure, suture management, and wound closure under my direction)
Anesthesiology: Robert Win MD and Mima Arshad CRNA
Body Trimmer Upholsterer: Liss Tyler CCP
Anesthesia: GETA
EBL: per perfusion records
Products: None
CPB Time: 79 minutes
Aortic Cross Clamp Time: 63 minutes
Indication(s) for Procedures: This is a 58-year-old male who recently emigrated to the [facility]. He was found to have significant shortness of breath with even light exertion. He underwent a transthoracic echocardiogram which demonstrated severe
aortic valve stenosis as well as a fair degree of insufficiency. We discussed the risk and benefits of surgical intervention given his age and he opted to move forward.
Aortic Valve Description: Type I, left right fusion, heavily calcified aortic valve extending into the annulus. Significant bar of calcium that extended down towards the aorta mitral curtain that required extensive debridement.
Findings: His ventricular ejection fraction preoperatively was 55 to 60%. No significant regional wall motion abnormalities. He did have a fair amount of aortic valve insufficiency. Following surgery his EF remained the same at approximately 55
to 60% with no new regional wall motion abnormalities. His aortic valve was heavily calcified with a large area of calcification extending down along the aorta mitral curtain onto the anterior leaf of the mitral valve on the ventricular aspect.
This was carefully debrided and the valve was replaced with a 25 mm biological valve secured to place with a total of 15 nonpledgeted 2 Ethibond sutures from LVOT, through annulus, sewing cuff and secured with core knots. After coming off
cardiopulmonary bypass, RICKEY assessment of the valve revealed no paravalvular leaks, and a mean gradient of approximately 5 mmHg with a cardiac index of 2.65. Did not require any inotropic support. After short period of junctional rhythm he
regained sinus rhythm.
Specimen(s): Aortic valve and leaflets.
Prosthesis:
1. 25 mm Guo Inspiris Resilia AVR, SN [id number]
Description of Procedure: The patient was taken to the operating room. Their identity and procedure to be performed were verified and they were positioned supine on the operating table. Induction via general anesthesia with endotracheal intubation
was performed and central venous access and arterial monitoring were inserted. A preoperative transesophageal echocardiogram was performed to assess cardiac function and valvular function. The patient was then prepped and draped from chin to knees
in a sterile fashion. A preoperative time-out was performed with all members of the team present. A upper midline chest incision was performed along with omar sternotomy to the 3rd intercostal space on the right. The innominate vein was isolated.
Full heparinization was given (a total of 30,000 units). We created a pericardial well. The aortic cannulation site was chosen where it was soft, pliable, and free of calcium. Common femoral vein access was done under ultrasound guidance using
Seldinger technique. Venous cannulation was done under RICKEY guidance. The arterial cannula was inserted in the ascending aorta. The arterial cannula line had an appropriate bounce and correlating pressures with test dosing. Next, a root
vent/antegrade cannula was inserted into the ascending aorta. The ACT was confirmed to be over 400 and retrograde autologous priming was performed before commencing cardiopulmonary bypass. I attempted to place a retrograde coronary sinus catheter
via the right atrial appendage and was unsuccessful so this was aborted, the atriotomy was later oversewn with 4-0 Prolene. The pulmonary artery was away from the aorta to facilitate a clamp site and aortotomy. The aortic cross-clamp was
applied after decreasing the flow on the bypass and mean arterial pressure. A total of 1.2L initial dose of antegrade Del-Nido cardioplegia solution was given and planned for re-dosing every 75 minutes as necessary. There was rapid
electro-mechanical arrest of the heart at 700 cc of cardioplegia. The left ventricle was observed for distention on echocardiogram and manual palpation. Cold slush was placed into the pericardial well and cooled to 34 degrees centigrade.
Carbon dioxide was used to flood the field. We manually identified the location of the right coronary take off. An aortotomy was made approximately 2cm above the sinotubular junction. The location of both left and right coronary vessels were
visualized in the root. An additional direct ostial cannula was used to give an additional dose of cardioplegia down each ostium due to the level of insufficiency. The leaflets were excised and sent for pathological assessment. The annulus was
debrided of any calcium being mindful of the annulus and membranous septum. There is extensive calcification that extended onto the aorta mitral curtain which required debridement. The root and left ventricular outflow tract were thoroughly
irrigated to remove any debris. A total of 15 non-pledgeted 2-0 ethibond annular sutures were placed [id number] circumferentially. These were brought through the sewing cuff of the prosthetic valve which as then parachuted into place. The left
and right coronary ostia were visualized and were unobstructed by the valve. A Cor-Knot device was used to secure the annular sutures. The valve was inspected and was well seated. The aortotomy was approximated with 4-0 prolene in two layers.
De-airing maneuvers were performed and temporary bipolar ventricular pacing wires were placed on the base of the right ventricle. The patient was placed in a Trendelenburg position and flows on bypass were lowered. The aortic cross clamp was removed
and flows were slowly brought back up. The aortotomy appeared hemostatic. Transesophageal echocardiography revealed no paravalvular leak and appropriate prosthetic function. Once de-airing was satisfactory, the root vent was removed. After
verifying acceptable parameters, we initiated weaning from cardiopulmonary bypass. Once we were off cardiopulmonary bypass, the venous cannula was clamped and removed. A test dose of protamine was administered and the patient was monitored for any
adverse reaction before resuming protamine. Once half of the protamine dose was delivered, pump suckers were turned off and the systolic blood pressure was lowered for aortic decannulation. The aortic cannula was removed and pursestrings were tied
down. All cannulation sites were oversewn with a 4-0 prolene. The aortotomy suture line was inspected and hemostasis was confirmed. Mediastinal hemostasis was obtained. 1 x 24Fr Ab drain was placed within the pericardium. The sternum was
approximated with 3 #7 single and 1 #6 double stainless steel wires. Fascia was approximated with #1 vicryl suture. The subcutaneous, dermis and epidermis were closed in layers in a running fashion. The femoral venous access site was closed with a
large buttressed pursestring. The skin wound was cleansed and dressed.
All instrument, sponge, and needle counts were confirmed to be correct x 2 at the end of the operation. The patient was transferred to the cardiac intensive care unit in critical but stable condition.
I, Dr. West Herzog, was present, scrubbed for, and performed all critical elements of this procedure.
West Herzog MD, MS
Cardiothoracic Surgeon
[facility]
This operative dictation was created using the [employer] dictation system. Please excuse any grammatical, typographical, or 'sound alike' errors
[2023-11-11 16:37] LABS: B.E. -0.1 mmol/L; HCO3 25.4 mmol/L (21-28); Ionized Calcium 1.18 mMOL/L (1.15-1.33); O2 Saturation % 99.8 % (94-98); PCO2 44 mmHg (35-48); PO2 183 mmHg (83-108); Potassium 4.6 mMOL/L (3.5-5.1); Sodium 137 mMOL/L (136-145); pH 7.37 (7.35-7.45)
[2023-11-11 16:39] LABS: Glucose - Point of Care 149 mg/dl (70-99)
[2023-11-11 16:47] LABS: Hematocrit 33.5 % (39.0-52.0); Hemoglobin 11.1 g/dL (13.0-18.0); Platelet Count 120 10^3/uL (130-400)
--- NOTE | 2023-11-11 16:49 | PTCARENOTE ---
Patient received from CV[facility]. Patient is unresponsive s/p anesthesia. Unable to assess orientation and muscle strength grading. Pupils 3mm sluggish bilaterally. NSR with prolonged QT (EKG confirmed). HR 70s-80s. V wire maintained to pacer box.
Settings checked by RN. Pacer box settings: VVI. HR 40, mA 14, sensitivity 1. No pacing needed. Audible heart tones. BP 100s-110s/60s via L radial a-line. RIJ cordis and swan maintained at 40cm. Lines leveled/zeroed. PA pressures 30s/10s. CVP 8. CO
4.34, CI 2.51. SVR 1363. Levo gtt received at 2mgs/min. Insulin gtt received at 1 unit/hr. Cardene gtt received on standby. Precedex gtt received on 0.5mcgs/kg/hr. Cordis and VIP KVOs adjusted. Palpable pulses. No edema. PIV x2 maintained. 8.0 ETT,
22 at the lip. Ventilator settings: SIMV. RR 12, TV 500, PEEP 5, FiO2 60%. Oxygen saturation 97%. Upon auscultation, bilateral anterior breath sounds are diminished. MS CT maintained to -20cm wall suction. MS CT has minimal red drainage. No air leak
noted. No tidaling. Abdomen flat. Hypoactive BS. Chen maintained with adequate clear, yellow UOP. Complete bedrest s/p CVOR. Assist x2 to turn/reposition. Sternal incision is approximated with surgical adhesive and open to air. CT dressing is
clean, dry, intact. R groin puncture site is sutured shut with a tegaderm dressing, which is clean, dry, intact. Will continue to monitor.
[2023-11-11 16:51] LABS: INR 1.35; PT 16.5 Sec (11.4-14.6)
[2023-11-11 16:52] LABS: APTT 32.4 Sec (23.4-35.0)
[2023-11-11 16:57] LABS: Blood Urea Nitrogen 15 mg/dl (9-20); Estimated Creatinine Clearance 78 ml/min; Glucose 147 mg/dl (70-99); Magnesium 2.9 mg/dl (1.6-2.3)
--- NOTE | 2023-11-11 17:08 | W.PN.UPDATE ---
Update Note
Progress Note Update
58 year old Lithuanian speaking male (recently from [facility]) was transferred from [facility] (treated by Dr. Erasmo Castellano) 11/05/23 for surgical management of bicuspid valve and severe aortic stenosis, moderat eaortic insufficiency. Initially
presented with chest heaviness and HEDRICK. Catheterization form 11/03 reported no significant coronary disease. PFTs reported mild restriction (FEV1 77%). Patient underwent dental evaluation and was cleared to proceed for AVR with Dr Herzog 11/11/23.
IV fluids: 1200
U.O.:� 400
Blood:� none
Wires:� V-wires
Inotropes:� none
Pressors:� Levophed @ 2
Sedatives:� Precedex @ 0.5
�
NEURO: sedated on Precedex, pupils +2mm B/L
RESP: #8OT @24cm> 500/60%/12/5. Lungs clear B/L. 1 mediastinal (30cc on arrival) chest tube to -20cm suction. Sanguineous drainage
CV: RRR +S1, S2, no S3, no�rub, no murmur. Dermabond to mini median sternotomy. RIJ w/Redmon locked @ 44cm. PA 21/04; CVP 3; C.O 4.34/CI 2.51
ABD: round, soft, no BS
EXT: no edema, +2/4 DP pulses B/L, no femoral bruit, left radial A-line intact
: Chen with clear yellow urine
�
A/P: POD #0 s/p Hemisternotomy aortic valve replacement #25 mm Inspiris and extensive debridement down to the aorta mitral curtain the ventricular aspect of the anterior leaflet of mitral valve
- wean and extubate
- will need instruction regarding antibiotic prophylaxis for dental and invasive procedures
- ASA only for anticoagulation
- Amio for AF prophylaxis
# Hx Hyperlipidemia
- current T. chol 189, LDL 114
�
# acute surgical blood loss anemia-expected
- initial Hb 11.1
- trend CBC
�
# Tobacco abuse
- quit tobacco 2 weeks ago
- assess need for Nicotine patch
[2023-11-11] MEDS: LR 1000 IV (17:13)
[2023-11-11] MEDS: NEURONTIN PO (17:13)
[2023-11-11] MEDS: TYLENOL PO (17:13)
[2023-11-11] MEDS: PACERONE PO (17:13)
[2023-11-11] MEDS: NSS 500 IV (17:13)
[2023-11-11] MEDS: LIPITOR PO (17:21)
[2023-11-11] MEDS: FERRLECIT IV (17:21)
--- NOTE | 2023-11-11 17:23 | PTCARENOTE ---
Patient is more awake and following commands. He is able to move all extremities - squeeze hands bilaterally and wiggle toes bilaterally. He nods appropriately to answer questions, asked by son, who is translating. Respiratory therapist placed
patient on CPAP at 1720. RR 10-16bpm. TV 300-400cc. Oxygen saturation 96%. Will obtain ABG in 30min.
[2023-11-11] MEDS: ZOFRAN 4 MG IV (17:45)
[2023-11-11 17:58] LABS: Glucose - Point of Care 108 mg/dl (70-99)
[2023-11-11 18:01] LABS: Ionized Calcium 1.16 mMOL/L (1.15-1.33); O2 Saturation % 99.3 % (94-98); PCO2 42 mmHg (35-48); PO2 138 mmHg (83-108)
--- NOTE | 2023-11-11 18:13 | PTCARENOTE ---
Patient extubated at 1810 per protocol and per order by RN and respiratory therapist. Patient tolerated. 6L NC applied. Oxygen saturation 93%. Patient's voice is hoarse. Oriented x4, per son, who is translating. Mouth care provided.
[2023-11-11] MEDS: DILAUDID 0.5 MG IV ×2 (18:19→21:24)
--- NOTE | 2023-11-11 19:00 | PTCARENOTE ---
report received from previous RN, walking rounds done. pt in bed, son @ bedside. pt AAOx4. pt c/o sternal incision pain. NSR on monitor, HR 80's. B/L radial and DP pulses palpable. heart tones clear. RIJ cordis + swan intact, KVOs infusing. left
radial art line intact. Levo gtt infusing @ 2mcg. last CI 2.65. epicardial wires intact to back up VVI 40, mA 14. B/L breath sounds present. POX 98% on 6LNC. IS encouraged. CT x1 intact to -20cm wall suction, drainage WNL, no air leak present.
hypoactive bowel sounds present. Insulin gtt infusing per glycemic protocol. saucedo catheter intact, draining clear yellow urine. UO adequate. all surgical sites stable. see worklist for full assessment, VS, and interventions. pt resting comfortably.
[2023-11-11 19:15] LABS: Glucose - Point of Care 103 mg/dl (70-99)
[2023-11-11] MEDS: CALCIUM CHLORIDE 10% SYRINGE 50 MG IV (19:16)
[2023-11-11] MEDS: CALCIUM CHLORIDE 10% SYRINGE 50 ML IV (19:16)
[2023-11-11] MEDS: SENOKOT-S PO (20:07)
[2023-11-11] MEDS: LOW STRENGTH ASPIRIN 81 MG PO (20:11)
[2023-11-11 20:17] LABS: Glucose - Point of Care 96 mg/dl (70-99)
[2023-11-11] MEDS: ROXICODONE 5 MG PO (20:27)
[2023-11-11] MEDS: PACERONE 200 MG PO (21:24)
[2023-11-11] MEDS: TYLENOL 1000 MG PO (21:24)
[2023-11-11] MEDS: MELATONIN 5 MG PO (21:24)
[2023-11-11] MEDS: NEURONTIN 100 MG PO (21:24)
[2023-11-11 21:31] LABS: Glucose - Point of Care 113 mg/dl (70-99)
[2023-11-11] MEDS: CALCIUM CHLORIDE 10% SYRINGE 60 MG IV (22:13)
--- NOTE | 2023-11-11 23:00 | PTCARENOTE ---
pt VSS, no changes in assessment. NSR 80's-90's. Levo maintained @ 2mcg. POX 98% on 3LNC. minimal CT output noted. UO adequate. Insulin gtt maintained. all surgical sites stable. pt sleeping between care w son @ bedside.
[2023-11-11 23:06] LABS: Glucose - Point of Care 100 mg/dl (70-99)
[2023-11-12] VITALS (27 sets, daily range): BP systolic 86–129; BP diastolic 67–82; PULSE 100; O2SAT 94–95; BMI 21.6
[2023-11-12] MEDS: DILAUDID 0.5 MG IV (00:58)
[2023-11-12] MEDS: ANCEF 5 IV ×3 (00:58→17:33)
[2023-11-12 01:07] LABS: Glucose - Point of Care 106 mg/dl (70-99)
--- NOTE | 2023-11-12 03:00 | PTCARENOTE ---
no changes in assessment, pt VSS. SR/ST on monitor. Levo gtt off since 010. last CI 2.66. POX 96% on 2LNC. IS encouraged. CT output and UO WNL. all surgical sites stable. Insulin gtt maintained. AM labs drawn and sent. EKG completed. son remains @
bedside. pt resting between care.
[2023-11-12 03:09] LABS: Glucose - Point of Care 91 mg/dl (70-99)
[2023-11-12 03:21] LABS: Hematocrit 32.2 % (39.0-52.0); Hemoglobin 10.7 g/dL (13.0-18.0); Mean Corp Hgb Conc. 33.2 g/dL (33.0-37.0); Mean Corpuscular Hgb 27.6 pg (27.0-31.0); Mean Platelet Volume 10.7 fL (7.4-10.4); Platelet Count 133 10^3/uL (130-400); Red Blood Cell Count 3.88 10^6/uL (4.70-6.10); Red Cell Dist. Width 12.3 % (11.5-14.5)
[2023-11-12] MEDS: ROXICODONE 5 MG PO (03:22)
[2023-11-12] MEDS: FLEXERIL 5 MG PO (03:23)
[2023-11-12 03:47] LABS: Blood Urea Nitrogen 15 mg/dl (9-20); Calcium 10.3 mg/dl (8.4-10.2); Carbon Dioxide 25 mmol/L (22-30); Chloride 103 mmol/L (98-107); Estimated Creatinine Clearance 78 ml/min; Glucose 93 mg/dl (70-99); Magnesium 2.1 mg/dl (1.6-2.3); Potassium 4.5 mmol/L (3.5-5.1); Sodium 137 mmol/L (135-145); eGFR > 60.00
[2023-11-12] MEDS: DILAUDID 0.25 MG IV (03:48)
--- NOTE | 2023-11-12 04:00 | PTCARENOTE ---
CLAUDIA mckeon and left radial art line d/c'd per orders without incident. VSS.
--- NOTE | 2023-11-12 04:01 | W.PN.CT ---
Today's Communication / Plan
-
Plan:
-No major issues overnight. Hemodynamically and neurologically intact
-Successfully extubated on 11/11/23 @ 1810
-Weaned of Levophed gtt overnight, remains on insulin per protocol
-Last CI 2.66, U/O since OR 1600
-EKG c/w acute pericarditis, written to receive 3 doses of Toradol, cr 0.9
-Cont. current meds (ASA, Amiodarone, Lopressor, Lipitor)
-Monitor chest tube drainage: 1meds . CXR this AM shows ~5% right apical ptx on my review with gaseous bowel distention. No air leak
-D/C'd swan and a-line @ 0400
-D/C insulin gtt per protocol, tele phase when off
-D/C saucedo catheter
-Maintain cordis
-Maintain temporary PW (will pull before d/c home)
-Encourage use of IS
-Wean off of O2 as tolerated
-OOB into chair/Ambulate
Assessment / Plan
-
Assessment:
-S/P Hemisternotomy [third and costal space]/AVR [25 mm bioprosthesis]/Extensive debridement down to the aorta mitral curtain the ventricular aspect of the anterior leaflet of mitral valve, by Dr. Herzog
11/11/23, pod#1
-Severe /Moderate AI/Bicuspid aortic valve
-LVEF 55-60%, per intraop RICKEY
-Cough x3 days with scant mucus, COVID negative
-Tobacco abuse, quit 2 wks ago
-Hyperlipidemia
-Acute postop blood loss/Anemia (stable without blood transfusion)
-Acute postop atelectasis
-Acute postop tiny R apical ptx (<5%)
-Acute postop hypovolemia with subsequent hypervolemia
-Acute postop EKG changes consistent with acute pericarditis (+rub)
Discussed patient care with: Cardiology, Nursing, Respiratory Therapy, Pharmacy and Care Team
Subjective
Procedure
Hemisternotomy [third and costal space]/AVR [25 mm bioprosthesis]/Extensive debridement down to the aorta mitral curtain the ventricular aspect of the anterior leaflet of mitral valve, by Dr. Herzog
11/11/23
-
Date of Service: November 12, 2023
Pt c/o pleuritic chest pain, otherwise feels well
Objective Data
-
Lab Results
11/12/23 03:04
11/12/23 03:04
PT 16.5 Sec (11.4-14.6) H 11/11/23 16:19
INR 1.35 11/11/23 16:19
APTT 32.4 Sec (23.4-35.0) 11/11/23 16:19
Vital Signs
Vital Signs
Temp Pulse Resp BP Pulse Ox
99.3 F 104 23 119/76 95
11/12/23 03:00 11/12/23 03:30 11/12/23 03:16 11/12/23 03:00 11/12/23 03:30
CT Intake/Output/Weight
11/11/23 11/11/23 11/12/23
06:59 18:59 06:59
Intake Total 647.9 / 1100.4 452.5 / 1100.4
Output Total 420 / 1230 810 / 1230
Balance 227.9 / -129.6 -357.5 / -129.6
SaO2: 95 (2L)
Physical Exam
-
General: Awake and AOx3
Cardiovascular: Regular rate & rhythm, No Murmurs, Rub (likely d/t acute pericarditis) and No Gallop
Respiratory: Decreased Breath Sounds
Sternum: Stable
Incision: Clean, Dry, Intact and Dressing Intact
Extremities: No Edema
Data Reviewed
-
Lab Results: Results Reviewed
Medications: Active Meds Reviewed
Chest X-Ray: Report Reviewed and Image Reviewed
ECG: Report Reviewed and Image Reviewed
[2023-11-12 05:40] LABS: Glucose - Point of Care 128 mg/dl (70-99)
[2023-11-12] MEDS: TORADOL 15 MG IV (05:51)
[2023-11-12] MEDS: TYLENOL 1000 MG PO ×3 (05:51→22:33)
--- NOTE | 2023-11-12 06:00 | PTCARENOTE ---
pt assisted OOB to chair, weight obtained. VSS. pt resting comfortably.
--- NOTE | 2023-11-12 07:42 | W.PN.INTV ---
Today's Communication / Plan
Recommendations
O2 protocol if needed
IS
Post op mgmt
Assessment
-
Assessment:
Mr Javier Chappell is a 58/M transferred from [facility] for evaluation of severe . He presented to [facility] with acute on chronic HEDRICK and chest discomfort, LHC and TTE showed severe . Seen by Dr Herzog, prepared for AVR
Impression:
S/p bioprosthetic AVR 11-10
Conditions DIGITAL CONTENT COORDINATOR:
HLD
Smoker
Plan:
Extubated postop
Saturating well on RA at rest
Asp precs
IS
Pressors/antihypertensive/inotropes/diuretics will be provided as needed
Monitor chest tube output
CXR today with mild linear R basilar atelectasis
Monitor hemoglobin
Monitor platelet count and coags
Transfuse blood product if needed
CT surgery following chest tubes
Monitor blood sugar
Insulin drip per protocol
DVT prophylaxis
Early nutrition
Early mobilization
Reconsult as needed
D/w patient and son at bedside
Subjective Dataa
Subjective Data
Date of Service:
Date of Service: November 12, 2023
Chief Complaint: Business Initiatives Manager Follow Up
Subjective:
No major events reported overnight
Extubated postop
OOB in chair, son at bedside
In good spirits, denies major complaints
Review of Systems
General: Fever (n) and Satisfactory Appetite
HEENT: Epistaxis (n) and Dysphagia (n)
Cardiopulmonary: Dyspnea (n), Cough and Chest Pain (incisional)
GI: Abdominal Pain (n), Nausea (n) and Vomiting
Neuro: Weakness
Objective Data
Data Reviewed
Vital Signs / I&O / Oxygen:
Vital Signs
Temp Pulse Resp BP Pulse Ox
99.1 F 103 17 88/68 96
11/12/23 04:00 11/12/23 07:01 11/12/23 05:00 11/12/23 07:01 11/12/23 07:01
Intake and Output
11/11/23 11/12/23 11/13/23
06:59 06:59 06:59
Intake Total 1140.4 / 1150.4
Output Total 1480 / 1510
Balance -339.6 / -359.6 -20 / -20
SaO2 [SIMV] 96
SaO2 96
Nasal Cannula flow liters per 2
minute
Physical Exam
General: Comfortable
HEENT: Normocephalic and Moist Mucous Membranes
Cardiovascular: Regular Rhythm and Peripheral Edema (n)
Respiratory: Clear, Non-Labored Respirations and Stridor (n)
GI: Soft, Non Distended and Non Tender
Neurology: Awake, Oriented and No Motor Deficits
Skin: Warm
Labs/Micro/Reports
Lab Data
11/12/23 03:04
11/12/23 03:04
Laboratory Results
11/11/23 11/11/23
16:19 17:54
PT 16.5 H
INR 1.35
APTT 32.4
pH 7.37 7.40
pCO2 44 42
pO2 183 H 138 H
HCO3 25.4 26.0
O2 Delivery Level
Microbiology
11/08/23 17:50 Nose MRSA Screen - Final
No Methicillin Resistant Staphylococcus aureus isolated.
11/07/23 09:19 Sputum Respiratory Culture - Final
Usual Respiratory Ashley
11/07/23 09:19 Sputum Gram Stain - Final
--- NOTE | 2023-11-12 07:55 | W.PN.ANS.POP ---
Anesthesia Post Operative
- Anesthesia Post Op Note
Vital Signs Stable-See Nursing Note: Yes
Airway Patent: Yes
Adequate Pain Control: Yes
Change in Mental Status: No
Current Postoperative Nausea & Vomiting: No
Anesthesia Complications: No
General Anesthetic Recall: No
Unplanned Admission: No
Post Op Hydration Adequate: Yes
[2023-11-12 08:24] LABS: Glucose - Point of Care 66 mg/dl (70-99)
[2023-11-12] MEDS: DEXTROSE 50% SYRINGE 12.5 GRAMS IV (08:25)
[2023-11-12] MEDS: LR 500 IV ×2 (08:29→09:42)
[2023-11-12] MEDS: LIDOCAINE 4% PATCH 1 PATCH TOPICAL (08:29)
[2023-11-12] MEDS: SENOKOT-S 1 TABLET PO ×2 (08:30→20:20)
[2023-11-12] MEDS: PACERONE 200 MG PO ×4 (08:30→22:33)
[2023-11-12] MEDS: MYLICON 80 MG PO (08:30)
[2023-11-12] MEDS: MAGNESIUM OXIDE 500 MG PO ×2 (08:30→20:20)
[2023-11-12] MEDS: LOW STRENGTH ASPIRIN 81 MG PO (08:30)
[2023-11-12] MEDS: VITAMIN C 500 MG PO (08:30)
[2023-11-12] MEDS: NEURONTIN 100 MG PO ×3 (08:30→22:33)
[2023-11-12] MEDS: PROTONIX 40 MG PO (08:30)
--- NOTE | 2023-11-12 08:30 | PTCARENOTE ---
Assumed care of patient. Walking rounds completed with previous RN. Pt assessed while he was sitting in the chair. Pt non-montenegrin speaking, son at bedside to translate. Pt alert and oriented x4. Pt rates sternal pain 4/10. Pt states he has slight
nausea, denies SOB. DOLL with equal strength in all extremities. SR-ST on tele with rates 90s-100s. BP 89/67, CT PULLEY MAN aware, 500mL LR bolus administered per orders. Bilateral radial and DP pulses palpable. No edema noted. Heart tones audible.
Epicardial v-wire set to back up 40/14. No pacing noted. POX 97% on 2L, titrated to RA, POX 95%. Lungs diminished in the bases. IS encouraged-750mL achieved. Mediastinal chest tube draining serosanguineous fluid, no air leaks, tidaling, crepitus
noted. Abdomen soft, nontender. +BS. Encouraged pt to pass gas. Due to void post saucedo removal. Sternal incision approximated with skin glue. Right groin puncture with suture in place, CDI. CT dressing CDI. Right IJ cordis and PIV x2 intact. See MAR
for medication administration. See worklist for complete nursing assessment. Plan of care reviewed and patient in agreement.
[2023-11-12] MEDS: BACTROBAN 2% OINTMENT 1 APPLIC NASAL ×2 (08:31→20:21)
[2023-11-12 08:47] LABS: Glucose - Point of Care 154 mg/dl (70-99)
[2023-11-12] MEDS: NSS IV (09:11)
[2023-11-12] MEDS: REGLAN 10 MG IV (09:29)
[2023-11-12] MEDS: LOPRESSOR 12.5 MG PO ×2 (09:43→20:20)
[2023-11-12 09:47] LABS: Glucose - Point of Care 100 mg/dl (70-99)
[2023-11-12 11:16] LABS: Glucose - Point of Care 114 mg/dl (70-99)
--- NOTE | 2023-11-12 11:55 | PTCARENOTE ---
Received pt from previous RN; pt AAOx3 and resting comfortably in bed; NSR on monitor and VSS: Epicardial wires set to VVI 40/14/2 and no pacing noted; RIJ Cordis and PIV x2 all patent; Insulin infusing per Glycemic Protocol see flow sheet for
details; Lungs diminished, IS to 750; CT x1 to -20 wall suction no air leak and no crepitus noted; hypoactive bowel sounds; pt due to void since Chen Catheter removal; palpable pulses throughout; no edema noted; surgical dressings C/D/I.
[2023-11-12 12:11] LABS: Glucose - Point of Care 94 mg/dl (70-99)
[2023-11-12 13:06] LABS: Glucose - Point of Care 99 mg/dl (70-99)
[2023-11-12] MEDS: FERRLECIT 110 MG IV (14:28)
[2023-11-12 15:08] LABS: Glucose - Point of Care 121 mg/dl (70-99)
[2023-11-12 16:10] LABS: Glucose - Point of Care 131 mg/dl (70-99)
--- NOTE | 2023-11-12 16:10 | PTCARENOTE ---
Assessment unchanged; NSR on monitor and VSS; Insulin drip discontinued per CV MATERIAL ASSISTANT order.
[2023-11-12] MEDS: LIPITOR 40 MG PO (17:18)
[2023-11-12 17:22] LABS: Glucose - Point of Care 128 mg/dl (70-99)
--- NOTE | 2023-11-12 20:45 | PTCARENOTE ---
Assumed care of patient from dayshift RN. Walking rounds completed. Pt AAOx3. [place] speaking - language line utilized to communicate with patient. SR on monitor. HR 90s. Additional dose of amiodarone administered per order. Temporary epicardial
v-wire set to backup VVI 40/14. + pulses. No edema. Patient placed on 2 L NC for POX of 89% on RA. Mediastinal CT to -20 suction, no airleak/tidaling/crepitus noted at this time, and output minimal. Deep breathing and IS encouraged. Abdomen
soft/nontender. Voiding yellow urine. +gas. Denies nausea at this time. All surgical sites stable. Right IJ cordis and PIVx2 CDI. Pt assisted OOB to use the bathroom and repositioned back into bed. Pt states pain is controlled at this time.
Instructed on use of call alaniz. See worklist for full nursing assessment, VS, and interventions.
[2023-11-12] MEDS: XANAX 0.25 MG PO (22:33)
[2023-11-12 22:38] LABS: Glucose - Point of Care 172 mg/dl (70-99)
[2023-11-12] MEDS: NOVOLOG FLEXPEN 5 UNITS SC (23:15)
--- NOTE | 2023-11-12 23:53 | PTCARENOTE ---
Previous assessment unchanged. Pt SR on monitor. HR 90s. Temporary epicardial v-wire intact. BP stable. Pt on 2 L NC. POX 96%. CT assessment unchanged from previous. No c/o nausea. HS blood sugar elevated - coverage administered, see MAR. All
surgical sites stable. Call alaniz within reach of patient.
[2023-11-13] VITALS (36 sets, daily range): BP systolic 79–120; BP diastolic 53–87; PULSE 80; O2SAT 94; BMI 22.2
[2023-11-13 00:36] LABS: Hematocrit 26.7 % (39.0-52.0); Hemoglobin 9.1 g/dL (13.0-18.0); Mean Corp Hgb Conc. 34.1 g/dL (33.0-37.0); Mean Corpuscular Hgb 27.8 pg (27.0-31.0); Mean Corpuscular Volume 81.7 fL (80.0-94.0); Mean Platelet Volume 11.3 fL (7.4-10.4); Platelet Count 125 10^3/uL (130-400); Red Blood Cell Count 3.27 10^6/uL (4.70-6.10); Red Cell Dist. Width 12.4 % (11.5-14.5); White Blood Cell Count 12.2 10^3/uL (4.8-10.8)
[2023-11-13 00:40] LABS: Blood Urea Nitrogen 21 mg/dl (9-20); Calcium 8.7 mg/dl (8.4-10.2); Carbon Dioxide 29 mmol/L (22-30); Chloride 99 mmol/L (98-107); Estimated Creatinine Clearance 70 ml/min; Glucose 120 mg/dl (70-99); Magnesium 1.9 mg/dl (1.6-2.3); Potassium 4.3 mmol/L (3.5-5.1); Sodium 131 mmol/L (135-145); eGFR > 60.00
--- NOTE | 2023-11-13 04:10 | PTCARENOTE ---
Previous assessment unchanged. Pt SR on monitor. HR 80s. BP stable. Temporary epicardial v-wire intact. Pt on [address] assessment unchanged. All surgical sites stable. No c/o pain at this time. Call alaniz within reach.
--- NOTE | 2023-11-13 04:49 | DOWNTIME ---
There was a [employer] Client Registered Art Therapist Downtime on 11/13/2023 from 0100 to 11/13/2023 at 0439. Downtime documentation of patient's care, including medication administrations, has been reconciled in the electronic record per guidelines. Refer to the
patient's paper chart under the miscellaneous tab to see printed paper medication records and downtime forms.
--- NOTE | 2023-11-13 05:30 | W.PN.CT ---
Today's Communication / Plan
-
Plan:
-No major issues overnight. Hemodynamically and neurologically intact
-Off all drips
-EKG c/w acute pericarditis, received 3 doses of Toradol
-CXR with stable tiny right apical ptx, no air leak. F/u official report
-Monitor chest tube output for possible d/c: 1meds
-Will consider pulling temporary PW today
-Cont. current meds (ASA, Amiodarone, Lopressor, Lipitor)
-Consider diuresis today, hyponatremic, 131. Fluid restriction
-Maintain cordis another day
-Encourage use of IS
-Wean off of O2 as tolerated
-OOB into chair/Ambulate
Assessment / Plan
-
Assessment:
-S/P Hemisternotomy [third and costal space]/AVR [25 mm bioprosthesis]/Extensive debridement down to the aorta mitral curtain the ventricular aspect of the anterior leaflet of mitral valve, by Dr. Herzog
11/11/23, pod#2
-Severe /Moderate AI/Bicuspid aortic valve
-LVEF 55-60%, per intraop RICKEY
-Cough x3 days with scant mucus, COVID negative
-Tobacco abuse, quit 2 wks ago
-Hyperlipidemia
-Acute postop blood loss/Anemia (stable without blood transfusion)
-Acute postop atelectasis
-Acute postop tiny R apical ptx (<5%)
-Acute postop hypovolemia with subsequent hypervolemia
-Acute postop EKG changes consistent with acute pericarditis (+rub)
Discussed patient care with: Cardiology, Nursing, Respiratory Therapy, Pharmacy and Care Team
Subjective
Procedure
Hemisternotomy [third and costal space]/AVR [25 mm bioprosthesis]/Extensive debridement down to the aorta mitral curtain the ventricular aspect of the anterior leaflet of mitral valve, by Dr. Herzog
11/11/23
-
Date of Service: November 13, 2023
Objective Data
-
Lab Results
11/13/23 00:11
11/13/23 00:11
PT 16.5 Sec (11.4-14.6) H 11/11/23 16:19
INR 1.35 11/11/23 16:19
APTT 32.4 Sec (23.4-35.0) 11/11/23 16:19
Vital Signs
Vital Signs
Temp Pulse Resp BP Pulse Ox
98.5 F 81 16 98/73 96
11/13/23 04:00 11/13/23 04:00 11/13/23 04:00 11/13/23 04:00 11/13/23 04:00
CT Intake/Output/Weight
11/12/23 11/12/23 11/13/23
06:59 18:59 06:59
Intake Total 492.5 / 1153.0 1448.6 / 1538.6 90 / 1538.6
Output Total 1060 / 1510 270 / 275 5 / 275
Balance -567.5 / -357.0 1178.6 / 1263.6 85 / 1263.6
SaO2: 96 (2L)
Physical Exam
-
General: Awake, Oriented and AOx3
Cardiovascular: Regular rate & rhythm, No Murmurs, Rub (acute pericarditis) and No Gallop
Respiratory: Decreased Breath Sounds (at bases, otherwise clear)
Sternum: Stable
Incision: Clean, Dry, Intact and Dressing Intact
Extremities: Other (+trace edema)
Data Reviewed
-
Lab Results: Results Reviewed
Medications: Active Meds Reviewed
Chest X-Ray: Report Reviewed and Image Reviewed
ECG: Report Reviewed and Image Reviewed
[2023-11-13] MEDS: TYLENOL 1000 MG PO ×3 (06:29→21:13)
--- NOTE | 2023-11-13 07:30 | PTCARENOTE ---
Pt has a translation ipad at bedside. Mechanical Manufacturing Engineer [id number] assisted with medication education, ISB demonstration with cough and deep breathe, the importance of nutrition, and pain management. All patient questions were answered and the plan of care
for today was discussed. Pt denies further learning needs.
--- NOTE | 2023-11-13 07:45 | PTCARENOTE ---
Received patient from prior shift. Pt assessment completed, see documentation in medical record. Pt education initiated about ISB use, cough and deep breathing with the heart pillow, mobility, nutrition, pain management, sternal precautions and rest
periods using the translation ipad. Pt asked to demonstrate ISB, and patient education completed to correct technique. Pt demonstrated understanding of education using the teach back method. Proper technique with the incentive spirometer will be
reinforced, and patient instructed to use the ISB ten times per hour (minimum). Medication education including medication side effects provided for all 0800 medications prior to administering AM medications. Pt sitting in the chair and
resting comfortably. Medication education will be reinforced throughout the day. IV site flushed and patent. Cordis patent.
[2023-11-13 08:32] LABS: Glucose - Point of Care 151 mg/dl (70-99)
[2023-11-13] MEDS: BACTROBAN 2% OINTMENT 1 APPLIC NASAL ×2 (08:39→21:13)
[2023-11-13] MEDS: LIDOCAINE 4% PATCH 1 PATCH TOPICAL (08:40)
[2023-11-13] MEDS: PACERONE 200 MG PO ×3 (08:43→21:16)
[2023-11-13] MEDS: PROTONIX 40 MG PO (08:43)
[2023-11-13] MEDS: MAGNESIUM OXIDE 500 MG PO ×2 (08:43→21:15)
[2023-11-13] MEDS: LOPRESSOR 12.5 MG PO ×2 (08:45→21:16)
[2023-11-13] MEDS: NEURONTIN 100 MG PO ×3 (08:46→21:15)
[2023-11-13] MEDS: LOW STRENGTH ASPIRIN 81 MG PO (08:46)
[2023-11-13] MEDS: SENOKOT-S 1 TABLET PO ×2 (08:46→21:15)
[2023-11-13] MEDS: MYLICON 80 MG PO ×2 (08:46→21:14)
--- NOTE | 2023-11-13 09:35 | PTCARENOTE ---
Pt has had a few self limiting episodes of rapid afib with heart rate to 150. Pt converts back to sinus rhythm before I can administer metoprolol IV. Will give metoprolol with next episode of afib.
[2023-11-13] MEDS: LOPRESSOR 5 MG IV ×2 (09:36→15:13)
--- NOTE | 2023-11-13 10:30 | PTCARENOTE ---
Pt education reinforced regarding pain management using google translate. Pt instructed about the pain management goal to achieve a pain scale of 3 out of 10 pain or less. Pt education provided about pain medications and nonpharmaceutical pain
management including repositioning, rest, distraction, massage, imagery, hot or cold therapy, and exercise. Pt demonstrated an understanding of education using the teach back method.
--- NOTE | 2023-11-13 11:10 | W.PN.UPDATE ---
Update Note
Progress Note Update
1 epicardial ventricular wire removed without difficulty. Met resistance with second wire. Dr Herzog notified and removed wire without incident. Bedrest x 1 hour and VS q15 min x 4
--- NOTE | 2023-11-13 12:00 | PTCARENOTE ---
Prior patient assessment remains unchanged. Pt resting comfortably in the chair. Heart sounds S1S2 and lungs clear with equal breath sounds bilaterally. Pain remains controlled at a 3 out of 10. Pt using ISB every hour when reminded, and ISB
technique has improved. Pt has ambulated in the hallway with one person assist for balance. Demonstrates proper sternal precautions and heart pillow use. Pt ambulates to bathroom with assist for voiding.
[2023-11-13 12:31] LABS: Glucose - Point of Care 179 mg/dl (70-99)
[2023-11-13] MEDS: FERRLECIT 110 MG IV (14:40)
[2023-11-13] MEDS: NSS 500 IV (14:42)
--- NOTE | 2023-11-13 15:00 | W.PN.CD ---
Today's Communication / Plan
-
Continue routine post operative care.
Incentive spirometry.
Impression / Plan
-
Impression/Plan: 58M with severe symptomatic transferred for inpatient SAVR.
#Severe Aortic stenosis, moderate aortic insufficiency:
-s/p hemisternotomy with aortic valve replacement (#25 Guo Inspiris Resilia AVR, SN [id number]), Dr. Herzog 11/11/23.
-Routine post operative management.
-Incentive spirometry, ambulation when appropriate.
#HLD:
-New diagnosis.
-Total cholesterol = 189, LDL = 114, HDL 36, Trigylcerides = 196.
-Now on atorvastatin 40 mg daily.
-Goal LDL < 55.
#Cough:
-Noted pre-op.
#Smoking
-Recommended continuing cessation.
Subjective/Interval History:
Intermittent episodes of atrial fibrillation to 150 bpm.
EKG shows acute pericarditis.
Weight is up 1.9 kg form yesterday, 1 kg from baseline.
Hbg down to 9.1.
Na down to 131.
Data:
Intraprocedure RICKEY, 11/11/2023:
CONCLUSIONS
Normal biventricular systolic function with LVEF of 55-60%. Functional
bicuspid valve with fusion of right/left cusp and severe aortic stenosis.
Severe aortic insufficiency. The remaining cardiac valves are grossly normal
in function. Grade III-IV atheromatous disease is seen in the lesser curvature
of the distal arch.
POST OPERATIVE FINDINGS
S/P miniAVR with size 25 bioprosthesis.
The bioprosthetic valve is well-seated with no paravalvular leak. The mean
gradient is 5 mmHg. Otherwise unchanged exam.
Carotid Artery US, 11/06/2023:
IMPRESSION:
Minimal noncalcified plaque within BOTH carotid bulbs causing less than 50% luminal narrowing bilaterally.
Antegrade flow within both vertebral arteries.
Orthopantogram, 11/06/2023:
FINDINGS/IMPRESSION:
Limited exam due to the technical motion.
No definite lucency around the roots of the teeth to suggest an abscess. No fracture.
CTA C/A/P, 11/06/2023:
IMPRESSION:
Mild cardiomegaly with aortic valvular calcification.
Dependent atelectasis and minimal interstitial scarring at the lung bases.
TTE Apr 5: EF 55-60%, Severely calcified aortic valve leaflets, MG 65 mmHG, PHILIPPE 0.7 cm2 (severe ), mild to moderate AR, mild MR, mild LVH,,
cardiac cath Apr 8: Severe with mean gradient 65 mmHG PHILIPPE 0.52 cm2, no evidence for CAD, normal L and R cath pressures
Physical Exam
Vital Signs/Labs
Vital Signs
Temp Pulse Resp BP Pulse Ox
36.8 C 90 19 99/70 93
11/13/23 08:00 11/13/23 13:45 11/13/23 08:00 11/13/23 13:00 11/13/23 13:15
11/12/23 11/13/23 11/14/23
11:59 11:59 11:59
Actual Weight 62.4 kg 64.3 kg
11/13/23 00:11
11/13/23 00:11
PT 16.5 Sec (11.4-14.6) H 11/11/23 16:19
INR 1.35 11/11/23 16:19
APTT 32.4 Sec (23.4-35.0) 11/11/23 16:19
Magnesium 1.9 mg/dl (1.6-2.3) 11/13/23 00:11
Triglycerides 196 mg/dl (10-149) H 11/06/23 10:23
LDL Cholesterol, Calc 114 mg/dl 11/06/23 10:23
VLDL Cholesterol, Calc 39 mg/dl (0-30) H 11/06/23 10:23
HDL Cholesterol 36 mg/dl 11/06/23 10:23
Physical Exam
Constitutional: No acute distress and Comfortable
EENT: Anicteric and Moist mucous membranes
Cardiovascular: Rhythm & rate is regular, Pedal edema is absent, JVD pressure is normal, S1S2 is normal and Murmur/rub/gallop absent
Respiratory: Respiratory effort normal and Other (Decreased throughout.)
GI: Soft, Distention absent, Flat, Non tender and Normal bowel sounds
Neuro/Psych: AO x 3
Data Reviewed
-
Date of Service: November 13, 2023
Medical Decision Making: Reviewed Test Results, Independent Historian Assessment and Test Interpretation
EKG: Tracing Personally Visualized and interpreted and Report Reviewed by me
Echo: Report Reviewed by me
X-Ray/CT/US/MRI/NUC/PET: Image Personally Visualized and interpreted and Report Reviewed by me
Medical Tests (PFT, Pathology etc): Report Reviewed by me
Labs: Labs Reviewed by me
--- NOTE | 2023-11-13 15:20 | SUR.PHASEI ---
Pt developed rapid afib again, converted back to SR but has been in and out of afib again now. Metoprolol given as ordered. Pt back in normal sinus rhythm.
[2023-11-13] MEDS: ROXICODONE 5 MG PO (15:41)
--- NOTE | 2023-11-13 15:45 | PTCARENOTE ---
Patient complaining of sternal pain and headache. Given PRN pain medication per MAR. Resting in bed currently and will get up to chair for dinner.
--- NOTE | 2023-11-13 16:00 | PTCARENOTE ---
Prior assessment remains unchanged. Heart and lung sounds unchanged. Pt continues to increase activity level. Infection prevention education provided including hand hygiene, incision care at home, and signs/symptoms of infection.
--- NOTE | 2023-11-13 16:15 | CM ---
CM following for DC planning needs.
Patient is POD#2 from AVR.
Met w/ patient at bedside.
DC plan is for home w/ VN. Patient is out of [facility] geographical area. Awaiting VN acceptance.
Will follow.
[2023-11-13 17:00] LABS: Glucose - Point of Care 129 mg/dl (70-99)
--- NOTE | 2023-11-13 17:34 | W.PN.UPDATE ---
Update Note
Progress Note Update
Right femoral retention suture removed without difficulty. No erythema @ site
[2023-11-13] MEDS: LIPITOR 40 MG PO (17:50)
--- NOTE | 2023-11-13 20:00 | PTCARENOTE ---
Resumed care from previous RN. Walking rounds completed. Resting comfortably in bed at time of assessment. AAOx3. Language line utilized to communicate with patient. SR on monitor. HR 80s. + pulses. No edema. 94% RA. lungs diminished but clear.
Abdomen soft/nontender. Simethicone given as ordered for bloating and gas. Voiding yellow urine. All surgical sites stable. Right IJ cordis and PIVx1 patent. will continue to monitor.
[2023-11-13] MEDS: FLEXERIL 5 MG PO (21:14)
[2023-11-13] MEDS: MYLICON PO (21:15)
[2023-11-13] MEDS: MELATONIN 5 MG PO (21:15)
[2023-11-14] VITALS (17 sets, daily range): BP systolic 79–121; BP diastolic 47–68; PULSE 83; O2SAT 91–92; BMI 22.1
--- NOTE | 2023-11-14 01:53 | PTCARENOTE ---
remains NSR overnight. VSS. will continue to monitor.
[2023-11-14 03:51] LABS: Hematocrit 24.8 % (39.0-52.0); Hemoglobin 8.1 g/dL (13.0-18.0); Mean Corp Hgb Conc. 32.7 g/dL (33.0-37.0); Mean Corpuscular Hgb 27.5 pg (27.0-31.0); Mean Corpuscular Volume 84.1 fL (80.0-94.0); Mean Platelet Volume 10.7 fL (7.4-10.4); Platelet Count 136 10^3/uL (130-400); Red Blood Cell Count 2.95 10^6/uL (4.70-6.10); Red Cell Dist. Width 12.3 % (11.5-14.5); White Blood Cell Count 8.9 10^3/uL (4.8-10.8)
--- NOTE | 2023-11-14 03:58 | PTCARENOTE ---
HR to 140s. NIRAJ Espino aware. Back into NSR without interference. continues with PVCs intermittently. Orders received.
--- NOTE | 2023-11-14 04:10 | W.PN.CT ---
Today's Communication / Plan
-
-pod #3
-c/o b/l PATIÑO last night, less painful this am, no neuro changes. A&O x4 (discussed in [place]ones[place])
-had brief episode of a-flutter 140s @ 3:50 am (<5 min long), asymptomatic, in bed- gave Amio bolus. Difficult to increase Lopressor d/t low BPs. Reports brief dizziness initially when gets up, then improves
-maintain Cordis in case further a-fib and requires Amio drip
-current meds (ASA, Lopressor 12.5 bid, Amio, Protonix, Lipitor, Neurontin, Lidocaine patch)
-encourage IS, OOB, ambulate
Assessment / Plan
-
Assessment:
-S/P Hemisternotomy [third and costal space]/AVR [25 mm bioprosthesis]/Extensive debridement down to the aorta mitral curtain the ventricular aspect of the anterior leaflet of mitral valve, by Dr. Herzog
11/11/23, pod#3
-Severe /Moderate AI/Bicuspid aortic valve
-LVEF 55-60%, per intraop RICKEY
-Cough x3 days with scant mucus, COVID negative
-Tobacco abuse, quit 2 wks ago
-Hyperlipidemia
-Acute postop blood loss/Anemia (stable without blood transfusion)
-Acute postop atelectasis
-Acute postop tiny R apical ptx (<5%)
-Acute postop hypovolemia with subsequent hypervolemia
-Acute postop EKG changes consistent with acute pericarditis (+rub)
-Acute postop brief intermittent a-flutter low 140s (<5 min long), asymptomatic
Discussed patient care with: Nursing and Care Team
Subjective
Procedure
Hemisternotomy [third and costal space]/AVR [25 mm bioprosthesis]/Extensive debridement down to the aorta mitral curtain the ventricular aspect of the anterior leaflet of mitral valve, by Dr. Herzog
11/11/23
-
Date of Service: November 14, 2023
Objective Data
-
Lab Results
11/14/23 03:29
PT 16.5 Sec (11.4-14.6) H 11/11/23 16:19
INR 1.35 11/11/23 16:19
APTT 32.4 Sec (23.4-35.0) 11/11/23 16:19
Vital Signs
Vital Signs
Temp Pulse Resp BP Pulse Ox
98.9 F 89 23 95/61 94
11/14/23 03:00 11/14/23 01:45 11/13/23 16:00 11/14/23 00:00 11/14/23 03:00
CT Intake/Output/Weight
11/13/23 11/13/23 11/14/23
06:59 18:59 06:59
Intake Total 90 / 1538.6 820 / 1160 340 / 1160
Output Total 5 / 275 0 / 0
Balance 85 / 1263.6 820 / 1160 340 / 1160
SaO2: 94
Physical Exam
-
General: Awake and AOx3
Cardiovascular: Regular rate & rhythm (no JVD), No Murmurs and No Rub
Respiratory: Decreased Breath Sounds
Sternum: Stable
Incision: Clean, Dry and Intact
Extremities: No Edema (2+ DP b/l)
Abdomen: soft, nontender, nondistended, increased bowel sounds
Data Reviewed
-
Lab Results: Results Reviewed
Medications: Active Meds Reviewed
Chest X-Ray: Report Reviewed and Image Reviewed
ECG: Report Reviewed and Image Reviewed
[2023-11-14 04:13] LABS: Blood Urea Nitrogen 13 mg/dl (9-20); Calcium 8.1 mg/dl (8.4-10.2); Carbon Dioxide 31 mmol/L (22-30); Chloride 101 mmol/L (98-107); Estimated Creatinine Clearance 90 ml/min; Glucose 94 mg/dl (70-99); Magnesium 2.3 mg/dl (1.6-2.3); Sodium 133 mmol/L (135-145); eGFR > 60.00
[2023-11-14] MEDS: CORDARONE 103 MG IV (04:22)
[2023-11-14] MEDS: TYLENOL 1000 MG PO ×3 (04:26→22:57)
--- NOTE | 2023-11-14 04:35 | PTCARENOTE ---
amio bolus given
[2023-11-14 07:47] LABS: Glucose - Point of Care 111 mg/dl (70-99)
--- NOTE | 2023-11-14 08:01 | W.PN.CD ---
Today's Communication / Plan
-
Incentive spirometry.
Ambulation.
Monitor BP and adjust medications cautiously in light of PAF (presumably all post operative).
Consider gentle diuresis in light of hyponatremia/anemia.
Impression / Plan
-
Impression/Plan: 58M with severe symptomatic transferred for inpatient [facility].
#Severe Aortic stenosis, moderate aortic insufficiency:
-s/p hemisternotomy with aortic valve replacement (#25 Guo Inspiris Resilia AVR, SN [id number]), Dr. Herzog 11/11/23.
-Routine post operative management.
-Better inspiratory effort on today's CXR. Lungs appear clear (very tiny left pleural effusion).
-Continue amiodarone, aspirin, metoprolol.
-Incentive spirometry, ambulation.
-Consider gentle diuresis (hyponatremia, anemia).
#Anemia
-Acute, post operative, possibly dilutional.
-MCV normal.
-Low threshold to transfuse, but would given IV furosemide if PRBC's is given.
#HLD:
-New diagnosis.
-Total cholesterol = 189, LDL = 114, HDL 36, Trigylcerides = 196.
-Now on atorvastatin 40 mg daily.
-Goal LDL < 55.
#Cough:
-Noted pre-op.
-Seems to have resolved.
#Smoking
-Recommended continuing cessation.
Subjective/Interval History:
Brief aflutter/AF overnight lasting < 5 minutes.
Metoprolol bolus given.
Headache yesterday, improved today.
Hypotensive this morning (81/47 @ 02:01, 79/65 @ 03:31).
Hbg down to 8.1 <-- 9.1 <-- 10.7 <-- 11.1 <-- 12.8 <-- 13.2.
SaO2 92% on RA.
Na up to 133.
Weight stable.
He reports (through google translate) that he feels well, significantly improved.
Data:
Intraprocedure RICKEY, 11/11/2023:
CONCLUSIONS
Normal biventricular systolic function with LVEF of 55-60%. Functional
bicuspid valve with fusion of right/left cusp and severe aortic stenosis.
Severe aortic insufficiency. The remaining cardiac valves are grossly normal
in function. Grade III-IV atheromatous disease is seen in the lesser curvature
of the distal arch.
POST OPERATIVE FINDINGS
S/P miniAVR with size 25 bioprosthesis.
The bioprosthetic valve is well-seated with no paravalvular leak. The mean
gradient is 5 mmHg. Otherwise unchanged exam.
Carotid Artery US, 11/06/2023:
IMPRESSION:
Minimal noncalcified plaque within BOTH carotid bulbs causing less than 50% luminal narrowing bilaterally.
Antegrade flow within both vertebral arteries.
Orthopantogram, 11/06/2023:
FINDINGS/IMPRESSION:
Limited exam due to the technical motion.
No definite lucency around the roots of the teeth to suggest an abscess. No fracture.
CTA C/A/P, 11/06/2023:
IMPRESSION:
Mild cardiomegaly with aortic valvular calcification.
Dependent atelectasis and minimal interstitial scarring at the lung bases.
TTE Apr 5: EF 55-60%, Severely calcified aortic valve leaflets, MG 65 mmHG, PHILIPPE 0.7 cm2 (severe ), mild to moderate AR, mild MR, mild LVH,,
cardiac cath Apr 8: Severe with mean gradient 65 mmHG PHILIPPE 0.52 cm2, no evidence for CAD, normal L and R cath pressures
Physical Exam
Vital Signs/Labs
Vital Signs
Temp Pulse Resp BP Pulse Ox
36.6 C 81 18 95/65 92
11/14/23 07:47 11/14/23 07:47 11/14/23 07:47 11/14/23 07:42 11/14/23 07:51
11/12/23 11/13/23 11/14/23
11:59 11:59 11:59
Actual Weight 62.4 kg 64.3 kg 64 kg
11/14/23 03:29
11/14/23 03:29
PT 16.5 Sec (11.4-14.6) H 11/11/23 16:19
INR 1.35 11/11/23 16:19
APTT 32.4 Sec (23.4-35.0) 11/11/23 16:19
Magnesium 2.3 mg/dl (1.6-2.3) 11/14/23 03:29
Triglycerides 196 mg/dl (10-149) H 11/06/23 10:23
LDL Cholesterol, Calc 114 mg/dl 11/06/23 10:23
VLDL Cholesterol, Calc 39 mg/dl (0-30) H 11/06/23 10:23
HDL Cholesterol 36 mg/dl 11/06/23 10:23
Physical Exam
Constitutional: No acute distress and Comfortable
EENT: Anicteric and Moist mucous membranes
Cardiovascular: Rhythm & rate is regular, Pedal edema is absent, JVD pressure is normal, S1S2 is normal and Rub present
Respiratory: Respiratory effort normal, Lungs clear to auscul., Wheeze Absent, Crackles Absent and Rhonchi Absent
GI: Soft, Distention absent, Flat, Non tender and Normal bowel sounds
Neuro/Psych: AO x 3
Data Reviewed
-
Date of Service: November 14, 2023
Medical Decision Making: Reviewed Test Results, Independent Historian Assessment and Test Interpretation
EKG: Tracing Personally Visualized and interpreted and Report Reviewed by me
Echo: Report Reviewed by me
X-Ray/CT/US/MRI/NUC/PET: Image Personally Visualized and interpreted and Report Reviewed by me
Medical Tests (PFT, Pathology etc): Report Reviewed by me
Labs: Labs Reviewed by me
[2023-11-14] MEDS: MAGNESIUM OXIDE 500 MG PO ×2 (08:41→20:49)
[2023-11-14] MEDS: LIDOCAINE 4% PATCH 1 PATCH TOPICAL (08:41)
[2023-11-14] MEDS: SENOKOT-S 1 TABLET PO ×2 (08:41→20:49)
[2023-11-14] MEDS: PROTONIX 40 MG PO (08:41)
[2023-11-14] MEDS: LOW STRENGTH ASPIRIN 81 MG PO (08:41)
[2023-11-14] MEDS: BACTROBAN 2% OINTMENT 1 APPLIC NASAL ×2 (08:42→20:44)
[2023-11-14] MEDS: PACERONE 200 MG PO ×3 (08:42→22:58)
[2023-11-14] MEDS: LOPRESSOR 12.5 MG PO (08:42)
[2023-11-14] MEDS: NEURONTIN 100 MG PO ×3 (08:42→22:57)
--- NOTE | 2023-11-14 08:46 | PTCARENOTE ---
Patient received from security shift supervisor resting comfortably oob in chair, ambulating to bathroom ad lambert. NSR via cm, SaO2 @ 92% on RA. RIJ Cordis, flushed. All procedural sites stable. Patient Central African speaking, able to make needs known. Denies pain at
this time, states family is bringing him breakfast. See work list for full assessment and interventions performed.
--- NOTE | 2023-11-14 11:43 | PTCARENOTE ---
VS obtained, assessment stable. Patient resting comfortably.
[2023-11-14 13:07] LABS: Glucose - Point of Care 140 mg/dl (70-99)
[2023-11-14] MEDS: FERRLECIT 110 MG IV (13:57)
[2023-11-14] MEDS: NSS IV (13:59)
--- NOTE | 2023-11-14 14:20 | CM ---
CM following for DC planning needs.
Attempted to meet w/ patient at bedside; he was asleep.
DC plan is for home w/ VN thru [facility].
Will cont. to follow.
[2023-11-14] MEDS: FLEXERIL 5 MG PO (16:18)
[2023-11-14] MEDS: LIPITOR 40 MG PO (17:20)
[2023-11-14] MEDS: LOPRESSOR 2.5 MG IV (17:21)
[2023-11-14 17:29] LABS: Glucose - Point of Care 139 mg/dl (70-99)
[2023-11-14] MEDS: LOPRESSOR 25 MG PO (20:54)
--- NOTE | 2023-11-14 21:00 | PTCARENOTE ---
Patient received resting in bed watching video. Armenian speaking. Physician's Price Clerk for CT Surgery, Carlos Mckinley PA-C, speaks fluent Armenian and communicated with patient. Patient A+A+Ox3. No neurological deficits noted. Room air. SaO2
90%. 2L O2 HS. No c/o SOB. Chest tube dressing intact. Sinus Rhythm. Heart rate 80-90's. No c/o chest pain, pressure or discomfort. Normoactive bowel sounds. No BM. No c/o nausea. No vomiting. Voiding without difficulty. Ambulating with
minimal assistance. Sternal Precautions. Right I.J. Cordis - Intact and patent - Saline flush 10 ml/hr. Sternal incision intact - Surgical adhesive - Open to air. Right groin puncture site open to air. Positive, palpable pulses. Patient with
no c/o back or flank pain. Assessment as documented.
[2023-11-14] MEDS: MELATONIN 5 MG PO (22:57)
--- NOTE | 2023-11-15 00:30 | PTCARENOTE ---
Patient sleeping without difficulty. No further changes from previous assessment.
[2023-11-15 03:44] VITALS: BP 94/60
[2023-11-15 03:45] VITALS: BP 94/60
--- NOTE | 2023-11-15 04:00 | PTCARENOTE ---
AM lab work collected and sent. Patient back to sleep. Assessment/Interventions as documented.
[2023-11-15 04:06] LABS: Hematocrit 23.2 % (39.0-52.0); Hemoglobin 7.8 g/dL (13.0-18.0); Mean Corp Hgb Conc. 33.6 g/dL (33.0-37.0); Mean Corpuscular Hgb 27.7 pg (27.0-31.0); Mean Corpuscular Volume 82.3 fL (80.0-94.0); Mean Platelet Volume 10.2 fL (7.4-10.4); Platelet Count 169 10^3/uL (130-400); Red Blood Cell Count 2.82 10^6/uL (4.70-6.10); Red Cell Dist. Width 12.3 % (11.5-14.5); White Blood Cell Count 6.4 10^3/uL (4.8-10.8)
[2023-11-15 04:28] LABS: Blood Urea Nitrogen 10 mg/dl (9-20); Calcium 7.9 mg/dl (8.4-10.2); Carbon Dioxide 27 mmol/L (22-30); Chloride 102 mmol/L (98-107); Estimated Creatinine Clearance 103 ml/min; Glucose 105 mg/dl (70-99); Magnesium 2.5 mg/dl (1.6-2.3); Potassium 3.9 mmol/L (3.5-5.1); Sodium 136 mmol/L (135-145); eGFR > 60.00
[2023-11-15 05:29] VITALS: BMI 21.6
[2023-11-15] MEDS: TYLENOL 1000 MG PO (05:32)
--- NOTE | 2023-11-15 06:38 | W.PN.CT ---
Today's Communication / Plan
-
-pod #4
-no issues overnight, no further a-fib
-current meds (ASA, Lopressor 12.5 bid, Amio, Protonix, Lipitor, Neurontin, Lidocaine patch)
-encourage IS, OOB, ambulate
-possible d/c
Assessment / Plan
-
Assessment:
-S/P Hemisternotomy [third and costal space]/AVR [25 mm bioprosthesis]/Extensive debridement down to the aorta mitral curtain the ventricular aspect of the anterior leaflet of mitral valve, by Dr. Herzog
11/11/23, pod#4
-Severe /Moderate AI/Bicuspid aortic valve
-LVEF 55-60%, per intraop RICKEY
-Cough x3 days with scant mucus, COVID negative
-Tobacco abuse, quit 2 wks ago
-Hyperlipidemia
-Acute postop blood loss/Anemia (stable without blood transfusion)
-Acute postop atelectasis
-Acute postop tiny R apical ptx (<5%)
-Acute postop hypovolemia with subsequent hypervolemia
-Acute postop EKG changes consistent with acute pericarditis (+rub)
-Acute postop brief intermittent a-flutter low 140s (<5 min long), asymptomatic
Discussed patient care with: Nursing and Care Team
Subjective
Procedure
Hemisternotomy [third and costal space]/AVR [25 mm bioprosthesis]/Extensive debridement down to the aorta mitral curtain the ventricular aspect of the anterior leaflet of mitral valve, by Dr. Herzog
11/11/23
-
Date of Service: November 15, 2023
Objective Data
-
Lab Results
11/15/23 03:54
11/15/23 03:54
PT 16.5 Sec (11.4-14.6) H 11/11/23 16:19
INR 1.35 11/11/23 16:19
APTT 32.4 Sec (23.4-35.0) 11/11/23 16:19
Vital Signs
Vital Signs
Temp Pulse Resp BP Pulse Ox
97.9 F 71 16 94/60 98
11/15/23 03:45 11/15/23 04:00 11/15/23 03:45 11/15/23 03:45 11/15/23 03:[address]
CT Intake/Output/Weight
11/14/23 11/14/23 11/15/23
06:59 18:59 06:59
Intake Total 340 / 1160 600 / 1200 600 / 1200
Balance 340 / 1160 600 / 1200 600 / 1200
SaO2: 98
Physical Exam
-
General: Awake and AOx3
Cardiovascular: Regular rate & rhythm (no JVD), No Murmurs and No Rub
Respiratory: Decreased Breath Sounds
Sternum: Stable
Incision: Clean, Dry and Intact
Extremities: No Edema (2+ DP b/l)
Abdomen: soft, nontender, nondistended, increased bowel sounds
Data Reviewed
-
Lab Results: Results Reviewed
Medications: Active Meds Reviewed
Chest X-Ray: Report Reviewed and Image Reviewed
ECG: Report Reviewed and Image Reviewed
--- NOTE | 2023-11-15 06:57 | W.PN.CD ---
Today's Communication / Plan
-
Consider transfusion.
Consider furosemide, but especially if the patient is transfused.
It appears that CT surgery is angling for discharge soon (possibly today).
Impression / Plan
-
Impression/Plan: 58M with severe symptomatic transferred for inpatient [facility].
#Severe Aortic stenosis, moderate aortic insufficiency:
-s/p hemisternotomy with aortic valve replacement (#25 Guo Inspiris Resilia AVR, SN [id number]), Dr. Herzog 11/11/23.
-Routine post operative management.
-Continue amiodarone, aspirin, metoprolol.
-Incentive spirometry, ambulation.
-Transfusion at the discretion of CT surgery.
-Favor furosemide 20 mg daily starting now.
#Anemia
-Acute, post operative, possibly dilutional.
-MCV normal.
-Low threshold to transfuse, but would given IV furosemide if PRBC's is given.
#HLD:
-New diagnosis.
-Total cholesterol = 189, LDL = 114, HDL 36, Trigylcerides = 196.
-Now on atorvastatin 40 mg daily.
-Goal LDL < 55.
#Cough:
-Noted pre-op.
-Seems to have resolved.
#Smoking
-Recommended continuing cessation.
Subjective/Interval History:
Metoprolol increased to 25 mg daily.
No further AF episodes.
Weight has fallen 1.6 kg.
Na up to 136.
Hbg down to 7.8.
Data:
Intraprocedure RICKEY, 11/11/2023:
CONCLUSIONS
Normal biventricular systolic function with LVEF of 55-60%. Functional
bicuspid valve with fusion of right/left cusp and severe aortic stenosis.
Severe aortic insufficiency. The remaining cardiac valves are grossly normal
in function. Grade III-IV atheromatous disease is seen in the lesser curvature
of the distal arch.
POST OPERATIVE FINDINGS
S/P miniAVR with size 25 bioprosthesis.
The bioprosthetic valve is well-seated with no paravalvular leak. The mean
gradient is 5 mmHg. Otherwise unchanged exam.
Carotid Artery US, 11/06/2023:
IMPRESSION:
Minimal noncalcified plaque within BOTH carotid bulbs causing less than 50% luminal narrowing bilaterally.
Antegrade flow within both vertebral arteries.
Orthopantogram, 11/06/2023:
FINDINGS/IMPRESSION:
Limited exam due to the technical motion.
No definite lucency around the roots of the teeth to suggest an abscess. No fracture.
CTA C/A/P, 11/06/2023:
IMPRESSION:
Mild cardiomegaly with aortic valvular calcification.
Dependent atelectasis and minimal interstitial scarring at the lung bases.
TTE Apr 5: EF 55-60%, Severely calcified aortic valve leaflets, MG 65 mmHG, PHILIPPE 0.7 cm2 (severe ), mild to moderate AR, mild MR, mild LVH,,
cardiac cath Apr 8: Severe with mean gradient 65 mmHG PHILIPPE 0.52 cm2, no evidence for CAD, normal L and R cath pressures
Physical Exam
Vital Signs/Labs
Vital Signs
Temp Pulse Resp BP Pulse Ox
36.6 C 71 16 94/60 98
11/15/23 03:45 11/15/23 04:00 11/15/23 03:45 11/15/23 03:45 11/15/23 06:42
11/13/23 11/14/23 11/15/23
11:59 11:59 11:59
Actual Weight 64.3 kg 64 kg 62.6 kg
11/15/23 03:54
11/15/23 03:54
PT 16.5 Sec (11.4-14.6) H 11/11/23 16:19
INR 1.35 11/11/23 16:19
APTT 32.4 Sec (23.4-35.0) 11/11/23 16:19
Magnesium 2.5 mg/dl (1.6-2.3) H 11/15/23 03:54
Triglycerides 196 mg/dl (10-149) H 11/06/23 10:23
LDL Cholesterol, Calc 114 mg/dl 11/06/23 10:23
VLDL Cholesterol, Calc 39 mg/dl (0-30) H 11/06/23 10:23
HDL Cholesterol 36 mg/dl 11/06/23 10:23
Physical Exam
Constitutional: No acute distress and Comfortable
EENT: Anicteric and Moist mucous membranes
Cardiovascular: Rhythm & rate is regular, Pedal edema is absent, JVD pressure is normal, S1S2 is normal and Murmur/rub/gallop absent
Respiratory: Respiratory effort normal, Lungs clear to auscul., Wheeze Absent, Crackles Absent and Rhonchi Absent
GI: Soft, Distention absent, Flat, Non tender and Normal bowel sounds
Neuro/Psych: AO x 3
Data Reviewed
-
Date of Service: November 15, 2023
Medical Decision Making: Reviewed Test Results, Independent Historian Assessment and Test Interpretation
EKG: Tracing Personally Visualized and interpreted and Report Reviewed by me
Echo: Report Reviewed by me
X-Ray/CT/US/MRI/NUC/PET: Image Personally Visualized and interpreted and Report Reviewed by me
Medical Tests (PFT, Pathology etc): Report Reviewed by me
Labs: Labs Reviewed by me
[2023-11-15] MEDS: LIDOCAINE 4% PATCH TOPICAL (07:05)
[2023-11-15 08:33] VITALS: BP 101/68
[2023-11-15] MEDS: LOPRESSOR 25 MG PO (08:34)
[2023-11-15] MEDS: SENOKOT-S 1 TABLET PO (08:34)
[2023-11-15] MEDS: PROTONIX 40 MG PO (08:34)
[2023-11-15] MEDS: NEURONTIN 100 MG PO (08:34)
[2023-11-15] MEDS: NSS IV (08:35)
[2023-11-15] MEDS: PACERONE 200 MG PO (08:35)
[2023-11-15] MEDS: LOW STRENGTH ASPIRIN 81 MG PO (08:35)
[2023-11-15] MEDS: BACTROBAN 2% OINTMENT 1 APPLIC NASAL (08:35)
--- NOTE | 2023-11-15 10:00 | W.DCSUMMARY ---
Discharge Summary
Discharge Data
Date of Admission: 11/05/23
Date of Discharge: 11/15/23
Total time spent discharging patient (in min): 34
-
Pending Results: No
Hospital Course
Primary care physician:
None
Outpatient napper tender:
Erasmo Castellano
Inpatient consultants:
CBC, greenstone polisher operator
Procedures:
1. Hemisternotomy [third and costal space] aortic valve replacement [25 mm bioprosthesis]
Primary Diagnosis:
1. Aortic valve severe aortic stenosis and moderately severe aortic insufficiency, symptomatic
Secondary Diagnoses:
1. Bicuspid aortic valve, type I with left right fusion and severe stenosis and moderate insufficiency
2. Hyperlipidemia
3. Former tobacco abuse
HPI: 58-year-old male who recently emigrated to the [facility] [address]. He was found to have significant shortness of breath with even light exertion. He underwent a transthoracic echocardiogram which demonstrated severe aortic valve stenosis as well as
a fair degree of insufficiency.
Hospital course:
Patient was transferred from [facility] for patient was transferred from [facility] for CT surgery workup and was taken to the CV OR on 11/10. He returned to the CVICU on Precedex insulin, and Levophed. Patient was found to
have a tiny right apical pneumothorax on chest x-ray but was asymptomatic he was weaned off his Precedex infusion and was extubated by 1809. He was given multiple lactated ringer boluses and Levophed was weaned off. On 11/11 postoperative day #1,
patient's Brandon Rickey catheter, Chen, and arterial line was discontinued. Simethicone was started for increased gas. On 11/12 postoperative day #2 chest tubes were discontinued and epicardial wires were pulled. He had a brief episode of atrial fibs
that was self limiting and hemoglobin was 9.1 and he was started on ferric gluconate and femoral retention suture was discontinued. On 11/13 postoperative day #3 beta-dia dose was increased. On 11/14 postoperative day #4 patient was tolerating
higher beta-dia dose and he was diuresed with 40 mg of p.o. Lasix. Chest x-ray was performed and remained stable and patient was deemed stable for discharge with repeat lab work in 5 days.
Home medication changes:
See below
Discharge Plan
-
Patient Disposition: Home (Routine Discharge)
Discharge Diagnosis/Procedures: AVR
Condition: Fair
Diet: No restrictions
Activity: No strenuous activity
Driving Restrictions: Not until seen by your Dr
Bathing Restrictions: OK to Shower
Blood Work: CBC in 5 days
Other Services: Cardiac Rehab
Specialty Instructions: Weigh Daily- Call MD for wt gain/loss 3 lbs overnight/5 lbs in 1 week
Activity Restrictions/Additional Instructions:
ACTIVITY:
-No strenuous activity: no heavy lifting, pushing, pulling anything over 15 pounds for one month
-continue to use stairs as tolerated
DRIVING RESTRICTIONS:
-No driving for one month or until approved by your surgeon
WOUND CARE:
-Shower daily. Use soap & water.
-No lotions, creams or powders on incision area.
DIET:
-continue a low fat/low cholesterol diet.
-IF you are diabetic, continue carb controlled diet.
CARDIAC REHAB:
-Please make appointment to start in 5-6 weeks with your local hospital program. (See Cardiac Rehabilitation Discharge Booklet).
SPECIALTY INSTRUCTIONS:
-Weigh yourself daily. Call your physician for any weight gain/loss of 3 lbs overnight or 5 lbs in one week.
-REPORT any clicking noise or uneven appearance of your sternum to your surgeon immediately.
-If you smoke, you are instructed to quit. The [place] smoking hotline phone number is [phone]
Referrals:
[facility] [Outside]
Erasmo Castellano MD [Active] - 01/09/24 12:40 pm
[facility],* [Family Provider] -
[place] Herzog MD [Active] - 12/18/23 1:45 pm
Prescriptions:
New
atorvastatin 40 mg Tablet
40 mg PO QPM Qty: 60 0RF
amiodarone [Pacerone] 200 mg Tablet
200 mg PO BID 30 Days Qty: 60 0RF
acetaminophen [Tylenol Extra Strength] 500 mg Tablet
1,000 mg PO TID@0600,1400,2200 PRN (Reason: mild to moderate pain) Qty: 0 0RF
aspirin [Children's Aspirin] 81 mg Tablet,Chewable
81 mg PO DAILY Qty: 0 0RF
metoprolol succinate [Toprol XL] 50 mg tablet extended release 24 hr
50 mg PO HS Qty: 30 1RF
amiodarone 200 mg tablet
200 mg PO DAILY Qty: 30 0RF
Rx Instructions:
start 30 days after discharge
ferrous fumarate-vitamin C 200 mg (65 mg iron)-25 mg tablet extended release
1 tab PO DAILY Qty: 30 0RF
Discharge Orders:
Discharge Patient (As Directed); Ordered 11/15/23
Ordered By: Francisca Rios
Care Plan Goals
Care Plan Goals:
Problem: Readiness for enhanced knowledge related to diagnosis and treatment plan
Goal: Understand your diagnosis and treatment plan needs, including medications if applicable.
Instructions: Know your diagnosis, underlying causes and treatment plan options, including medications if applicable. Consult with your health care team to learn about your diagnosis and treatment plan, including medications if applicable.
Discharge Date and Time
Print Language: KHMER
[2023-11-15 10:20] VITALS: BP 134/106
[2023-11-15 10:29] VITALS: BP 106/62
[2023-11-15 10:31] VITALS: BP 106/62; BP 134/106; PULSE 77; O2SAT 95; O2SAT 98
[2023-11-15] MEDS: LASIX 40 MG PO (10:51)
--- NOTE | 2023-11-15 11:59 | PTCARENOTE ---
VSS. Son at bedside and went over all d/c instructions with him. questions answered. iv removed and tele pack. refused shower. left with son via wheelchair.
--- NOTE | 2023-11-15 15:01 | CM ---
CM following for DC planning needs.
Call to patient's son. Reviewed DC plans for home w/ VN thru [facility].
There are no other identified DC needs.
== END 2023-11-15 11:30 | disposition home health service (06) | DRG 220 ==
LOC: CVICU 21:56
PROVIDERS: Anesthesiology; Physician Assistant; Physician Assistant Medical; ADMITTING PHYSICIAN Thoracic Surgery (Cardiothoracic Vascular Surgery); CONSULT PHYSICIAN Dentist Oral and Maxillofacial Surgery; CONSULT PHYSICIAN Internal Medicine Cardiovascular Disease; OTHER PHYSICIAN Internal Medicine Pulmonary Disease
PROC: 02RF08Z Replacement of Aortic Valve with Zooplastic Tissue, Open Approach (ICD-10-PCS; 2023-11-11)
PROC: B24BZZ4 Ultrasonography of Heart with Aorta, Transesophageal (ICD-10-PCS; 2023-11-11)
PROC: 5A1221Z Performance of Cardiac Output, Continuous (ICD-10-PCS; 2023-11-11)
DX: I35.2 Nonrheumatic aortic (valve) stenosis with insufficiency (principal); D62 Acute posthemorrhagic anemia; Q23.1 Congenital insufficiency of aortic valve; J98.11 Atelectasis; J95.811 Postprocedural pneumothorax; I30.9 Acute pericarditis, unspecified; I48.92 Unspecified atrial flutter; E87.1 Hypo-osmolality and hyponatremia; E78.00 Pure hypercholesterolemia, unspecified; F17.210 Nicotine dependence, cigarettes, uncomplicated; K05.5 Other periodontal diseases; Y83.4 Other reconstructive surgery as the cause of abnormal reaction of the patient, or of later complication, without mention of misadventure at the time of the procedure; E86.1 Hypovolemia; E87.70 Fluid overload, unspecified; R05.9 Cough, unspecified; Z11.52 Encounter for screening for COVID-19; Z87.891 Personal history of nicotine dependence
CPT/HCPCS: 88305; 88311; 36600; 70355; 71045; 71046; 71275; 74174; 80048; 80053; 80061; 81003; 81015; 82248; 82330; 82565; 82805; 82947; 82962; 83036; 83735; 84132; 84302; 84520; 85014; 85018; 85027; 85049; 85610; 85730; 86850; 86900; 86901; 86920; 87070; 87205; 87811; 93005; 93312; 93320; 93325; 93880; 94002; 94010; 94640; J2916; Q9967